=== PATIENT | female | born 1950 | race Caucasian/White ===

== ENCOUNTER 2018-08-17 02:40 | Inpatient (IN) | payer MEDICARE, BC ==
[2018-08-17] MEDS ORDERED: Sodium Chloride 0.9% 1,000 ML IV ONE (03:26)
[2018-08-17] MEDS ORDERED: GI Cocktail Oral Solution 30 ML PO ONE (03:26)
[2018-08-17] MEDS ORDERED: Pantoprazole 40 MG Vial IVPUSH ONE (03:26)
[2018-08-17] MEDS ORDERED: Famotidine 20 MG/2 ML SDV IVPUSH ONE (03:26)
--- NOTE | 2018-08-17 03:33 | EDM.PDOC ---
ED HPI GENERAL MEDICAL PROBLEM - General Chief Complaint: General Stated Complaint: nausea, bilat upper abd pain, HTN, HORTON Time Seen by Provider: 08/17/18 03:08 Source of Information: Reports: Patient History Limitations: Reports: No Limitations - History of Present Illness INITIAL COMMENTS - FREE TEXT/NARRATIVE: Patient comes to ER with complaint of bilateral upper abdominal pain that started on Friday, two days ago. Has been relatively constant over that timeframe. Unable to sleep due to discomfort. Pain does not really change with position/PO intake/burping/bowel movements/movement/breathing. Denies vomiting/ diarrhea. Has nausea. Developed headache today. No vision changes or other HEENT changes. Denies cough/SOB/respiratory changes. No CV complaints such as chest pain/palpitations. History of CAD/CABG Normal bowel movements. Does not feel constipated. No or Neuro changes. Tried Rolaids but no change noted. No history of similar pain in past. Still has gallbladder. Denies history of pancreatitis. Bilateral Upper Abdomen Pain Score (Numeric/FACES): 8 - Related Data Allergies Allergy/AdvReac Type Severity Reaction Status Date / Time Penicillins Allergy Rash Verified 08/17/18 02:46 Home Meds: Home Meds Aspirin [Aspirin EC] 325 mg PO DAILY 05/08/18 [History] Levothyroxine Sodium [Synthroid] 1 tab PO DAILY 05/08/18 [History] Lisinopril 10 mg PO DAILY@18 05/08/18 [History] Metoprolol Succinate [Toprol XL] 25 mg PO DAILY 05/08/18 [History] atorvaSTATin [Lipitor] 40 mg PO BEDTIME 05/08/18 [History] metFORMIN HCl [Metformin HCl] 500 mg PO BID 05/08/18 [History] Acetaminophen [Tylenol Arthritis] 2 tab PO Q6H PRN 08/17/18 [History] Cholecalciferol (Vitamin D3) [Vitamin D3] 1,000 units PO BID 08/17/18 [History] Folic Acid/Multivit-Min/Lutein [Multi-Vitamin Gummies] 1 each PO DAILY 08/17/18 [History] Magnesium Oxide [Magnesium] 400 mg PO BID 08/17/18 [History] Temazepam 1 tab PO BEDTIME PRN 08/17/18 [History] Vitamin C/Biotin [Cnct-Hjkb-Emcnb Gummies] 1 each PO DAILY 08/17/18 [History] Past Medical History Cardiovascular History: Reports: Afib, High Cholesterol, [place] Other Cardiovascular History: Two incidences of short term Afib since CABG Gastrointestinal History: Reports: GERD ASPHALT ENGINEER History: Reports: , Other (See Below) Other ASPHALT ENGINEER History: Hysterectomy Musculoskeletal History: Reports: Back Pain, Chronic, Other (See Below) ( ventral hernia) Endocrine/Metabolic History: Reports: Diabetes, Type II, Hypothyroidism, Obesity /BMI 30+, Other (See Below) Other Endocrine/Metabolic History: Borderline Type II Diabetic Dermatologic History: Reports: Eczema - Past Surgical History Cardiovascular Surgical History: Reports: Coronary Artery Bypass Other Cardiovascular Surgeries/Procedures: CABG x2 in 2017 GI Surgical History: Reports: Hernia, Abdominal Social & Family History - Tobacco Use Smoking Status *Q: Never Smoker - Caffeine Use Caffeine Use: Reports: None - Alcohol Use Alcohol Use History: No Alcohol Use in Last Twelve Months: No - Recreational Drug Use Recreational Drug Use: No Drug Use in Last 12 Months: No ED ROS GENERAL - Review of Systems Review Of Systems: See Below Constitutional: Reports: Decreased Appetite. Denies: Fever, Chills, Weakness, Fatigue, Diaphoresis HEENT: Reports: No Symptoms Respiratory: Reports: No Symptoms Cardiovascular: Reports: No Symptoms GI/Abdominal: Reports: Abdominal Pain, Decreased Appetite, Nausea. Denies: Black Stool, Bloody Stool, Constipation, Diarrhea, Difficulty Swallowing, Distension, Vomiting : Reports: No Symptoms Musculoskeletal: Reports: No Symptoms (no acute changes from baseline) Skin: Reports: No Symptoms Neurological: Reports: Headache. Denies: Confusion, Dizziness, Difficulty Walking, Weakness, Change in Speech, Gait Disturbance Psychiatric: Reports: No Symptoms Hematologic/Lymphatic: Reports: No Symptoms ED EXAM, GENERAL - Physical Exam Exam: See Below Exam Limited By: No Limitations General Appearance: Alert, WD/WN, No Apparent Distress Eye Exam: Bilateral Eye: EOMI, PERRL Ears: Normal External Exam Nose: Normal Inspection Throat/Mouth: Normal Lips, Normal Voice, No Airway Compromise Head: Atraumatic, Normocephalic Neck: Normal Inspection, Supple, Non-Tender, Full Range of Motion. No: Carotid Bruit, Lymphadenopathy (L), Lymphadenopathy (R) Respiratory/Chest: No Respiratory Distress, Lungs Clear, Normal Breath Sounds, No Accessory Muscle Use, Chest Non-Tender Cardiovascular: Normal Peripheral Pulses, Regular Rate, Rhythm, No Edema, No Murmur Peripheral Pulses: 2+: Radial (L), Radial (R) GI/Abdominal: Soft, Tender (most tender in epigastric area, also some tenderness noted bilateral upper abdomen. No radiation of pain. ), Abnormal Bowel Sounds (diminished), Hernia (has ventral hernia). No: Guarding, Rigid, Rebound (Female) Exam: Deferred Rectal (Female) Exam: Deferred Back Exam: No: CVA Tenderness (L), CVA Tenderness (R), Muscle Spasm Extremities: Normal Inspection, Normal Range of Motion, Non-Tender, No Pedal Edema, Normal Capillary Refill Neurological: Alert, Oriented, Normal Cognition, Normal Gait, No Motor/Sensory Deficits Psychiatric: Normal Affect, Normal Mood Skin Exam: Warm, Dry, Intact, Normal Color EKG INTERPRETATION EKG Date: 08/17/18 Time: 02:47 Rhythm: NSR Rate (Beats/Min): 77 [place]: Normal P-Wave: Present QRS: Normal ST-T: Other (flattening of T waves lateral leads) QT: Normal Comparison: No Change (from May 2018) Course - Vital Signs Last Recorded V/S: Last Vital Signs Temp 36.8 C 08/17/18 02:45 Pulse 72 08/17/18 02:45 Resp 20 08/17/18 02:45 BP 164/92 H 08/17/18 02:45 Pulse Ox 94 L 08/17/18 02:45 - Orders/Labs/Meds Orders: Active Orders 24 hr Category Date Time Status Cardiac Monitoring [RC] . DIRECTED Care 08/17/18 03:03 Active EKG Documentation Completion [RC] ASDIRECTED Care 08/17/18 02:53 Active Abdomen 2V AP Flat Upright [CR] Stat Exams 08/17/18 03:02 Ordered Chest 2V [CR] Stat Exams 08/17/18 03:02 Ordered AMYLASE [CHEM] Stat Lab 08/17/18 03:09 Ordered CK W CKMB [CHEM] Stat Lab 08/17/18 03:00 Received CMP [COMPREHENSIVE METABOLIC PN,CMP] [CHEM] Stat Lab 08/17/18 03:00 Received INR,PT,PROTHROMBIN TIME [COAG] Stat Lab 08/17/18 03:00 Received LIPASE [CHEM] Stat Lab 08/17/18 03:09 Ordered MAGNESIUM [CHEM] Stat Lab 08/17/18 03:00 Received PRO B-TYPE NATRIUR PEPT,BNPPRO [CHEM] Stat Lab 08/17/18 03:00 Received PTT,PARTIAL THROMBOPLSTIN TIME [COAG] Stat Lab 08/17/18 03:00 Received TROPONIN I [CHEM] Stat Lab 08/17/18 03:00 Received TSH ULTRASENSITIVE [CHEM] Stat Lab 08/17/18 03:00 Received Sodium Chloride 0.9% [Normal Saline] 1,000 ml Med 08/17/18 03:26 Ordered IV .BOLUS Sodium Chloride 0.9% [Saline Flush] Med 08/17/18 03:03 Active 10 ml FLUSH ASDIRECTED PRN Saline Lock Insert [OM.PC] Routine Oth 08/17/18 03:03 Ordered Medication Orders Sodium Chloride (Normal Saline) 1,000 mls @ 500 mls/hr IV .BOLUS ONE Stop: 08/17/18 05:25 Sodium Chloride (Saline Flush) 10 ml FLUSH ASDIRECTED PRN PRN Reason: Keep Vein Open Labs: Laboratory Tests 08/17/18 08/17/18 08/17/18 Range/Units 03:00 03:00 03:00 WBC 13.3 H (4.0-10.2) K/uL RBC 4.45 (3.77-5.09) M/uL Hgb 14.3 (11.7-15.5) g/dL Hct 41.3 (34.0-46.0) % MCV 92.8 (84.0-98.0) fL MCH 32.1 (28.2-33.3) pg MCHC 34.6 (31.7-36.0) g/dL RDW 12.1 (11.2-14.1) % Plt Count 327 (150-350) K/uL Neut % (Auto) 77.9 (45.0-80.0) % Lymph % (Auto) 13.0 (10.0-50.0) % [place] % (Auto) 7.8 (2.0-14.0) % Eos % (Auto) 1.1 (0.0-5.0) % Baso % (Auto) 0.2 (0.0-2.0) % Neut # (Auto) 10.33 H (1.40-7.00) K/uL Lymph # (Auto) 1.73 (0.50-3.50) K/uL [place] # (Auto) 1.04 H (0.00-1.00) K/uL Eos # (Auto) 0.15 (0.00-0.50) K/uL Baso # (Auto) 0.02 (0.00-0.20) K/uL D-Dimer, Quantitative 374 (0-400) ng/mL Lactic Acid 1.6 (0.4-2.0) mmol/L Meds: Medications Generic Name Dose Route Start Last Admin Trade Name Freq PRN Reason Stop Dose Admin Sodium Chloride 1,000 mls @ 500 mls/hr 08/17/18 03:26 Normal Saline IV 08/17/18 05:25 .BOLUS ONE Sodium Chloride 10 ml 08/17/18 03:03 Saline Flush FLUSH ASDIRECTED PRN Keep Vein Open Discontinued Medications Generic Name Dose Route Start Last Admin Trade Name Freq PRN Reason Stop Dose Admin Al Hydroxide/Mg Hydroxide 30 ml 08/17/18 03:26 Gi Cocktail PO 08/17/18 03:27 ONETIME ONE Famotidine 20 mg 08/17/18 03:26 Pepcid IVPUSH 08/17/18 03:27 ONETIME ONE Pantoprazole Sodium 40 mg 08/17/18 03:26 Protonix Iv IVPUSH 08/17/18 03:27 ONETIME ONE - Radiology Interpretation Free Text/Narrative:: No acute changes observed on chest xray that suggest infiltrate/pneumonia. Abdominal film: no air/fluid levels. Increased stool in ascending colon. Round lucency noted near liver, of unknown significance. - Re-Assessments/Exams Free Text/Narrative Re-Assessment/Exam: 08/17/18 03:46 Cardiac protocol ordered given patient's CAD history and possibility of this being atypical chest pain related to ischemia. EKG unremarkable. No change from EKG from May 2018. Trop/Ddimer unremarkable. Amylase/lipase/LFTs normal. WBC elevated to 13 Blood glucose elevated. Mg low despite patient taking Mg supplement at home. BNP mildly elevated. Pain improved with GI cocktail. Protonix and Pepcid given IV. Patient later admitted that she has been having a lot more problems with heartburn lately. Plan at this time is to admit and perform serial cardiac enzyme measurements to more fully rule out cardiac component to patient's complaint. US of abdomen ordered to more closely look at lucency noted on abdominal film. H.Pylorie screen also requested. Departure - Departure Time of Disposition: 04:01 Disposition: Refer to Observation Condition: Good Clinical Impression: Hypomagnesemia Abdominal pain Qualifiers: Abdominal location: upper abdomen, unspecified Qualified Code(s): R10.10 - Upper abdominal pain, unspecified - Discharge Information *PRESCRIPTION DRUG MONITORING PROGRAM REVIEWED*: Not Applicable *COPY OF PRESCRIPTION DRUG MONITORING REPORT IN PATIENT RAMU: Not Applicable Referrals: Petrona Renee COMBINATION WORKER [Primary Care Provider] - - Problem List & Annotations (1) Abdominal pain SNOMED Code(s): 72219565 Code(s): R10.9 - UNSPECIFIED ABDOMINAL PAIN Status: Acute Priority: High Onset Date: ~08/14/18 Annotation/Comment:: Uncertain etiology. Suspect GERD /PUD contributing to the pain. Improved with GI cocktail. Abd US ordered to more fully assess upper abdomen. Normal LFT/amylase/lipase Qualifiers: Abdominal location: upper abdomen, unspecified Qualified Code(s): R10.10 - Upper abdominal pain, unspecified (2) GERD (gastroesophageal reflux disease) SNOMED Code(s): 970101708 Code(s): K21.9 - GASTRO-ESOPHAGEAL REFLUX DISEASE WITHOUT ESOPHAGITIS Status: Chronic Priority: High Annotation/Comment:: History of GERD/ heartburn symptoms. Pain tonight improved with GI cocktail. Protonix and Pepcid given IV. H.Pylorie screen ordered. Qualifiers: Esophagitis presence: esophagitis presence not specified Qualified Code(s) : K21.9 - Gastro-esophageal reflux disease without esophagitis (3) Hypomagnesemia SNOMED Code(s): 151732818 Code(s): E83.42 - HYPOMAGNESEMIA Status: Chronic Priority: Medium Annotation/Comment:: Will give supplemental Mag. Patient's home dose of Magnesium will need to be increased at time of discharge. (4) Hypertension SNOMED Code(s): 13091961 Code(s): I10 - ESSENTIAL (PRIMARY) HYPERTENSION Status: Chronic Priority : Medium Annotation/Comment:: Monitor for trends while on observation Qualifiers: Hypertension type: essential hypertension Qualified Code(s): I10 - Essential (primary) hypertension (5) Diabetes SNOMED Code(s): 24397780 Code(s): E11.9 - TYPE 2 DIABETES MELLITUS WITHOUT COMPLICATIONS Status: Chronic Priority: Low Annotation/Comment:: A1C ordered. Qualifiers: Diabetes mellitus type: type 2 - Problem List Review Problem List Initiated/Reviewed/Updated: Yes - My Orders Last 24 Hours: My Active Orders 08/17/18 02:53 EKG Documentation Completion [RC] ASDIRECTED 08/17/18 03:00 CK W CKMB [CHEM] Stat CMP [COMPREHENSIVE METABOLIC PN,CMP] [CHEM] Stat INR,PT,PROTHROMBIN TIME [COAG] Stat MAGNESIUM [CHEM] Stat PRO B-TYPE NATRIUR PEPT,BNPPRO [CHEM] Stat PTT,PARTIAL THROMBOPLSTIN TIME [COAG] Stat TROPONIN I [CHEM] Stat TSH ULTRASENSITIVE [CHEM] Stat 08/17/18 03:02 Abdomen 2V AP Flat Upright [CR] Stat Chest 2V [CR] Stat 08/17/18 03:03 Cardiac Monitoring [RC] . DIRECTED Sodium Chloride 0.9% [Saline Flush] 10 ml FLUSH ASDIRECTED PRN Saline Lock Insert [OM.PC] Routine 08/17/18 03:09 AMYLASE [CHEM] Stat LIPASE [CHEM] Stat 08/17/18 03:26 Sodium Chloride 0.9% [Normal Saline] 1,000 ml IV .BOLUS - Assessment/Plan Admission H&P: Please use this note as an admission H&P Last 24 Hours: My Active Orders 08/17/18 02:53 EKG Documentation Completion [RC] ASDIRECTED 08/17/18 03:00 CK W CKMB [CHEM] Stat CMP [COMPREHENSIVE METABOLIC PN,CMP] [CHEM] Stat INR,PT,PROTHROMBIN TIME [COAG] Stat MAGNESIUM [CHEM] Stat PRO B-TYPE NATRIUR PEPT,BNPPRO [CHEM] Stat PTT,PARTIAL THROMBOPLSTIN TIME [COAG] Stat TROPONIN I [CHEM] Stat TSH ULTRASENSITIVE [CHEM] Stat 08/17/18 03:02 Abdomen 2V AP Flat Upright [CR] Stat Chest 2V [CR] Stat 08/17/18 03:03 Cardiac Monitoring [RC] . DIRECTED Sodium Chloride 0.9% [Saline Flush] 10 ml FLUSH ASDIRECTED PRN Saline Lock Insert [OM.PC] Routine 08/17/18 03:09 AMYLASE [CHEM] Stat LIPASE [CHEM] Stat 08/17/18 03:26 Sodium Chloride 0.9% [Normal Saline] 1,000 ml IV .BOLUS Assessment:: as above Plan: as above. Patient stable and suitable for generalized supervision. Anticipate 1- 2 day stay depending upon clinical course.
[2018-08-17 03:34] LABS: CHLORIDE,CL 97 mmol/L (98-107); SODIUM,NA 134 mmol/L (136-145)
[2018-08-17] MEDS: Sodium Chloride 0.9% 10 ML Syringe FLUSH PRN ×5 (03:39→20:00)
[2018-08-17] MEDS ORDERED: Temazepam 15 MG Cap PO PRN (04:16)
[2018-08-17] MEDS ORDERED: Ondansetron 4 MG/2 ML SDV IVPUSH ONE ×2 (04:21→13:33)
[2018-08-17] MEDS ORDERED: Morphine 4 MG/ML Syringe IVPUSH ONE (04:21)
[2018-08-17] MEDS ORDERED: Levothyroxine 75 MCG Tab PO SCH (07:30)
[2018-08-17] MEDS ORDERED: metFORMIN 500 MG Tab PO SCH (07:30)
[2018-08-17] MEDS ORDERED: Magnesium Oxide 400 MG Tab PO SCH (08:00)
[2018-08-17] MEDS: Acetaminophen 325 MG Tab PO PRN (09:19)
[2018-08-17] MEDS: Metoprolol Succinate 25 MG Tab.ER PO SCH (09:20)
[2018-08-17 09:31] LABS: HEMOGLOBIN A1C 7.7 % (4.3-5.7)
--- NOTE | 2018-08-17 10:10 | PCM.SN ---
- Free Text/Narrative Note: 08-17-18 1000 Truong Solorio PA-C Phone call from [facility] Radiologist Dr. Pinzon, with ultrasound report of gallbladder inflammation and gallstones that would be consistent with Cholelithiasis.
[2018-08-17] MEDS ORDERED: fentaNYL 100 MCG/2 ML SDV IVPUSH ONE (13:33)
[2018-08-17] MEDS: Ciprofloxacin in D5W 400 MG in Premix Bag 1 BAG IV SCH ×2 (14:05)
[2018-08-17] MEDS: metroNIDAZOLE/Normal Saline 500 MG in Premix Bag 1 BAG IV SCH (15:07)
[2018-08-17] MEDS: Lactated Ringers 1,000 ML IV SCH (15:08)
--- NOTE | 2018-08-17 15:08 | PCM.PN ---
- General Info Date of Service: 08/17/18 Functional Status: Reports: Other (still with pain) - Review of Systems General: Reports: Other (nausea) HEENT: Reports: Headaches Pulmonary: Reports: No Symptoms Cardiovascular: Reports: No Symptoms Gastrointestinal: Reports: Abdominal Pain, Decreased Appetite, Nausea, Vomiting Genitourinary: Reports: No Symptoms Musculoskeletal: Reports: No Symptoms Skin: Reports: No Symptoms Neurological: Reports: No Symptoms Psychiatric: Reports: No Symptoms - Patient Data Vitals - Most Recent: Last Vital Signs Temp 97.1 F 08/17/18 12:00 Pulse 66 08/17/18 12:00 Resp 16 08/17/18 12:00 BP 187/92 H 08/17/18 12:00 Pulse Ox 96 08/17/18 12:00 Weight - Most Recent: 191 lb 3.205 oz Lab Results Last 24 Hours: Laboratory Results - last 24 hr 08/17/18 08/17/18 08/17/18 Range/Units 03:00 03:00 03:00 WBC 13.3 H (4.0-10.2) K/uL RBC 4.45 (3.77-5.09) M/uL Hgb 14.3 (11.7-15.5) g/dL Hct 41.3 (34.0-46.0) % MCV 92.8 (84.0-98.0) fL MCH 32.1 (28.2-33.3) pg MCHC 34.6 (31.7-36.0) g/dL RDW 12.1 (11.2-14.1) % Plt Count 327 (150-350) K/uL Neut % (Auto) 77.9 (45.0-80.0) % Lymph % (Auto) 13.0 (10.0-50.0) % [place] % (Auto) 7.8 (2.0-14.0) % Eos % (Auto) 1.1 (0.0-5.0) % Baso % (Auto) 0.2 (0.0-2.0) % Neut # (Auto) 10.33 H (1.40-7.00) K/uL Lymph # (Auto) 1.73 (0.50-3.50) K/uL [place] # (Auto) 1.04 H (0.00-1.00) K/uL Eos # (Auto) 0.15 (0.00-0.50) K/uL Baso # (Auto) 0.02 (0.00-0.20) K/uL PT 11.0 (9.5-12.0) SEC INR 1.0 APTT 24.9 (21.0-31.3) SEC D-Dimer, Quantitative (0-400) ng/mL Sodium 134 L (136-145) mmol/L Potassium 3.7 (3.5-5.1) mmol/L Chloride 97 L (98-107) mmol/L Carbon Dioxide 26.4 (21.0-32.0) mmol/L BUN 11 (7-18) mg/dL Creatinine 0.70 (0.51-1.17) mg/dL Est Cr Clr Drug Dosing 61.68 mL/min Estimated GFR (MDRD) > 60 mL/min Glucose 203 H (74-106) mg/dL Hemoglobin A1c (4.3-5.7) % Lactic Acid (0.4-2.0) mmol/L Calcium 9.0 (8.5-10.1) mg/dL Magnesium 1.6 L (1.8-2.4) mg/dL Total Bilirubin 0.7 (0.2-1.0) mg/dL AST 16 (15-37) U/L ALT 27 (12-78) U/L Alkaline Phosphatase 94 (46-116) IU/L Creatine Kinase 45 (26-308) U/L Creatine Kinase Index 2.2 (0.0-2.5) % CK-MB (CK-2) 1.00 (0.00-3.60) ng/mL Troponin I 0.000 (0.000-0.056) ng/mL C-Reactive Protein (<=0.9) mg/dL NT-Pro-B Natriuret Pep 553 H (0-125) pg/mL Total Protein 8.0 (6.4-8.2) g/dL Albumin 3.8 (3.4-5.0) g/dL Amylase 52 (25-115) U/L Lipase 119 (73-393) U/L TSH, Ultra Sensitive 0.802 (0.358-3.740) mIU/mL Specimen Type Urine Color Urine Appearance Urine pH (5.0-9.0) Ur Specific [place] (1.005-1.030) Urine Protein (NEGATIVE) mg/dL Urine Glucose (UA) (NEGATIVE) mg/dL Urine Ketones (NEGATIVE) mg/dL Urine Occult Blood (NEGATIVE) Urine Nitrite (NEGATIVE) Urine Bilirubin (NEGATIVE) Urine Urobilinogen (0.2-1.0) E.U./dL Ur Leukocyte Esterase (NEGATIVE) Urine RBC /HPF Urine WBC /HPF Ur Epithelial Cells /LPF Urine Bacteria (NONE TO FEW) /HPF Urinalysis Comment 08/17/18 08/17/18 08/17/18 Range/Units 03:00 03:00 03:03 WBC (4.0-10.2) K/uL RBC (3.77-5.09) M/uL Hgb (11.7-15.5) g/dL Hct (34.0-46.0) % MCV (84.0-98.0) fL MCH (28.2-33.3) pg MCHC (31.7-36.0) g/dL RDW (11.2-14.1) % Plt Count (150-350) K/uL Neut % (Auto) (45.0-80.0) % Lymph % (Auto) (10.0-50.0) % [place] % (Auto) (2.0-14.0) % Eos % (Auto) (0.0-5.0) % Baso % (Auto) (0.0-2.0) % Neut # (Auto) (1.40-7.00) K/uL Lymph # (Auto) (0.50-3.50) K/uL [place] # (Auto) (0.00-1.00) K/uL Eos # (Auto) (0.00-0.50) K/uL Baso # (Auto) (0.00-0.20) K/uL PT (9.5-12.0) SEC INR APTT (21.0-31.3) SEC D-Dimer, Quantitative 374 (0-400) ng/mL Sodium (136-145) mmol/L Potassium (3.5-5.1) mmol/L Chloride (98-107) mmol/L Carbon Dioxide (21.0-32.0) mmol/L BUN (7-18) mg/dL Creatinine (0.51-1.17) mg/dL Est Cr Clr Drug Dosing mL/min Estimated GFR (MDRD) mL/min Glucose (74-106) mg/dL Hemoglobin A1c 7.7 H (4.3-5.7) % Lactic Acid 1.6 (0.4-2.0) mmol/L Calcium (8.5-10.1) mg/dL Magnesium (1.8-2.4) mg/dL Total Bilirubin (0.2-1.0) mg/dL AST (15-37) U/L ALT (12-78) U/L Alkaline Phosphatase (46-116) IU/L Creatine Kinase (26-308) U/L Creatine Kinase Index (0.0-2.5) % CK-MB (CK-2) (0.00-3.60) ng/mL Troponin I (0.000-0.056) ng/mL C-Reactive Protein (<=0.9) mg/dL NT-Pro-B Natriuret Pep (0-125) pg/mL Total Protein (6.4-8.2) g/dL Albumin (3.4-5.0) g/dL Amylase (25-115) U/L Lipase (73-393) U/L TSH, Ultra Sensitive (0.358-3.740) mIU/mL Specimen Type Urine Color Urine Appearance Urine pH (5.0-9.0) Ur Specific [place] (1.005-1.030) Urine Protein (NEGATIVE) mg/dL Urine Glucose (UA) (NEGATIVE) mg/dL Urine Ketones (NEGATIVE) mg/dL Urine Occult Blood (NEGATIVE) Urine Nitrite (NEGATIVE) Urine Bilirubin (NEGATIVE) Urine Urobilinogen (0.2-1.0) E.U./dL Ur Leukocyte Esterase (NEGATIVE) Urine RBC /HPF Urine WBC /HPF Ur Epithelial Cells /LPF Urine Bacteria (NONE TO FEW) /HPF Urinalysis Comment 08/17/18 08/17/18 08/17/18 Range/Units 06:31 09:00 09:10 WBC (4.0-10.2) K/uL RBC (3.77-5.09) M/uL Hgb (11.7-15.5) g/dL Hct (34.0-46.0) % MCV (84.0-98.0) fL MCH (28.2-33.3) pg MCHC (31.7-36.0) g/dL RDW (11.2-14.1) % Plt Count (150-350) K/uL Neut % (Auto) (45.0-80.0) % Lymph % (Auto) (10.0-50.0) % [place] % (Auto) (2.0-14.0) % Eos % (Auto) (0.0-5.0) % Baso % (Auto) (0.0-2.0) % Neut # (Auto) (1.40-7.00) K/uL Lymph # (Auto) (0.50-3.50) K/uL [place] # (Auto) (0.00-1.00) K/uL Eos # (Auto) (0.00-0.50) K/uL Baso # (Auto) (0.00-0.20) K/uL PT (9.5-12.0) SEC INR APTT (21.0-31.3) SEC D-Dimer, Quantitative (0-400) ng/mL Sodium (136-145) mmol/L Potassium (3.5-5.1) mmol/L Chloride (98-107) mmol/L Carbon Dioxide (21.0-32.0) mmol/L BUN (7-18) mg/dL Creatinine (0.51-1.17) mg/dL Est Cr Clr Drug Dosing mL/min Estimated GFR (MDRD) mL/min Glucose (74-106) mg/dL Hemoglobin A1c (4.3-5.7) % Lactic Acid (0.4-2.0) mmol/L Calcium (8.5-10.1) mg/dL Magnesium (1.8-2.4) mg/dL Total Bilirubin (0.2-1.0) mg/dL AST (15-37) U/L ALT (12-78) U/L Alkaline Phosphatase (46-116) IU/L Creatine Kinase (26-308) U/L Creatine Kinase Index (0.0-2.5) % CK-MB (CK-2) (0.00-3.60) ng/mL Troponin I 0.000 (0.000-0.056) ng/mL C-Reactive Protein 2.8 H (<=0.9) mg/dL NT-Pro-B Natriuret Pep (0-125) pg/mL Total Protein (6.4-8.2) g/dL Albumin (3.4-5.0) g/dL Amylase (25-115) U/L Lipase (73-393) U/L TSH, Ultra Sensitive (0.358-3.740) mIU/mL Specimen Type Urinvoid Urine Color Yellow Urine Appearance Clear Urine pH 7.0 (5.0-9.0) Ur Specific [place] 1.015 (1.005-1.030) Urine Protein Negative (NEGATIVE) mg/dL Urine Glucose (UA) Negative (NEGATIVE) mg/dL Urine Ketones Trace H (NEGATIVE) mg/dL Urine Occult Blood Negative (NEGATIVE) Urine Nitrite Negative (NEGATIVE) Urine Bilirubin Negative (NEGATIVE) Urine Urobilinogen 0.2 (0.2-1.0) E.U./dL Ur Leukocyte Esterase Small H (NEGATIVE) Urine RBC Not seen /HPF Urine WBC 5-10 H /HPF Ur Epithelial Cells Many H /LPF Urine Bacteria Moderate H (NONE TO FEW) /HPF Urinalysis Comment Med Orders - Current: Current Medications Acetaminophen (Tylenol) 650 mg PO Q4H PRN PRN Reason: analgesia/fever Last Admin: 08/17/18 09:19 Dose: 650 mg Fentanyl (Sublimaze) 100 mcg IVPUSH Q3H PRN PRN Reason: Pain Ciprofloxacin/Dextrose 400 mg/ (Premix) 200 mls @ 200 mls/hr IV Q12H [facility] Last Admin: 08/17/18 14:05 Dose: 200 mls/hr Lactated Ringer's (Ringers, Lactated) 1,000 mls @ 100 mls/hr IV ASDIRECTED [facility] Metronidazole 500 mg/ Premix 100 mls @ 100 mls/hr IV Q8H [facility] Lisinopril (Prinivil) 10 mg PO DAILY@18 [facility] Metoprolol Succinate (Toprol Xl) 25 mg PO DAILY [facility] Last Admin: 08/17/18 09:20 Dose: 25 mg Ondansetron HCl (Zofran) 4 mg IVPUSH Q4H PRN PRN Reason: Nausea/Vomiting Pantoprazole Sodium (Protonix Iv) 40 mg IVPUSH BEDTIME [facility] Sodium Chloride (Saline Flush) 10 ml FLUSH ASDIRECTED PRN PRN Reason: Keep Vein Open Last Admin: 08/17/18 14:05 Dose: 10 ml Temazepam (Restoril) 15 mg PO BEDTIME PRN PRN Reason: Insomnia Discontinued Medications Al Hydroxide/Mg Hydroxide (Gi Cocktail) 30 ml PO ONETIME ONE Stop: 08/17/18 03:27 Last Admin: 08/17/18 03:32 Dose: 30 ml Atorvastatin Calcium (Lipitor) 40 mg PO BEDTIME [facility] Famotidine (Pepcid) 20 mg IVPUSH ONETIME ONE Stop: 08/17/18 03:27 Last Admin: 08/17/18 03:32 Dose: 20 mg Fentanyl (Sublimaze) 100 mcg IVPUSH ONETIME ONE Stop: 08/17/18 13:34 Last Admin: 08/17/18 14:06 Dose: 100 mcg Sodium Chloride (Normal Saline) 1,000 mls @ 500 mls/hr IV .BOLUS ONE Stop: 08/17/18 05:25 Last Admin: 08/17/18 03:37 Dose: 500 mls/hr Magnesium Sulfate/Dextrose (Magnesium 1 Gm In D5w 100 Ml) 100 mls @ 100 mls/hr IV ONETIME ONE Stop: 08/17/18 05:29 Last Admin: 08/17/18 04:53 Dose: 100 mls/hr Levothyroxine Sodium (Levothyroxine) 75 mcg PO ACBREAKFAST [facility] Last Admin: 08/17/18 09:20 Dose: 75 mcg Magnesium Oxide (Magnesium Oxide) 400 mg PO BID [facility] Last Admin: 08/17/18 09:19 Dose: 400 mg Metformin HCl (Glucophage) 500 mg PO BIDMEALS [facility] Last Admin: 08/17/18 09:20 Dose: 500 mg Morphine Sulfate (Morphine) 4 mg IVPUSH ONETIME ONE Stop: 08/17/18 04:22 Last Admin: 08/17/18 04:35 Dose: 4 mg Ondansetron HCl (Zofran) 4 mg IVPUSH ONETIME ONE Stop: 08/17/18 04:22 Last Admin: 08/17/18 04:35 Dose: 4 mg Ondansetron HCl (Zofran) 8 mg IVPUSH ONETIME ONE Stop: 08/17/18 13:34 Last Admin: 08/17/18 14:06 Dose: 8 mg Pantoprazole Sodium (Protonix Iv) 40 mg IVPUSH ONETIME ONE Stop: 08/17/18 03:27 Last Admin: 08/17/18 03:32 Dose: 40 mg - Exam General: Alert, Cooperative HEENT: EOMI Neck: Trachea Midline, No JVD Lungs: Clear to Auscultation, Normal Respiratory Effort Cardiovascular: Regular Rate, Regular Rhythm GI/Abdominal Exam: Soft, No Distention, Tender (epigastrium and RUQ) (Female) Exam: Deferred Back Exam: Normal Inspection Extremities: Normal Inspection, Non-Tender Skin: Warm, Dry, Intact Neurological: No New Focal Deficit Psy/Mental Status: Alert, Normal Affect, Normal Mood - Problem List & Annotations (1) Acute cholecystitis due to biliary calculus SNOMED Code(s): 32704596576402 Code(s): K80.00 - CALCULUS OF GALLBLADDER W ACUTE CHOLECYST W/O OBSTRUCTION Status: Acute Priority: High Current Visit: Yes (2) Diabetes SNOMED Code(s): 51479393 Code(s): E11.9 - TYPE 2 DIABETES MELLITUS WITHOUT COMPLICATIONS Status: Chronic Priority: Low Current Visit: No Qualifiers: Diabetes mellitus type: type 2 Diabetes mellitus complication status: with hyperglycemia Annotation/Comment:: (3) GERD (gastroesophageal reflux disease) SNOMED Code(s): 426095192 Code(s): K21.9 - GASTRO-ESOPHAGEAL REFLUX DISEASE WITHOUT ESOPHAGITIS Status: Chronic Priority: High Current Visit: No Qualifiers: Esophagitis presence: esophagitis presence not specified Qualified Code(s) : K21.9 - Gastro-esophageal reflux disease without esophagitis Annotation/Comment:: History of GERD/heartburn symptoms. Pain tonight improved with GI cocktail. Protonix and Pepcid given IV. H.Pylorie screen ordered. (4) Hypertension SNOMED Code(s): 57546311 Code(s): I10 - ESSENTIAL (PRIMARY) HYPERTENSION Status: Chronic Priority : Medium Current Visit: No Qualifiers: Hypertension type: essential hypertension Qualified Code(s): I10 - Essential (primary) hypertension (5) Hypomagnesemia SNOMED Code(s): 762451769 Code(s): E83.42 - HYPOMAGNESEMIA Status: Chronic Priority: Medium Current Visit: No Annotation/Comment:: Will give supplemental Mag. Patient's home dose of Magnesium will need to be increased at time of discharge. - Problem List Review Problem List Initiated/Reviewed/Updated: Yes - My Orders Last 24 Hours: My Active Orders 08/17/18 13:27 Patient Status [ADT] Routine 08/17/18 13:39 Notify Provider Consults [RC] ASDIRECTED Consult to Physician [CONS] Routine 08/17/18 13:45 Lactated Ringers [Ringers, Lactated] 1,000 ml IV ASDIRECTED 08/17/18 14:00 Ciprofloxacin in D5W [Cipro in D5W 400 MG/200 ML] 400 mg Premix Bag 1 bag IV Q12H 08/17/18 15:00 metroNIDAZOLE/Normal Saline [Flagyl 500 MG in NS 100 ML] 500 mg Premix Bag 1 bag IV Q8H 08/17/18 16:30 fentaNYL [Sublimaze] 100 mcg IVPUSH Q3H PRN 08/17/18 17:30 Ondansetron [Zofran] 4 mg IVPUSH Q4H PRN 08/17/18 20:00 Pantoprazole [ProTONIX IV] 40 mg IVPUSH BEDTIME 08/17/18 Dinner Clear Liquid Diet [DIET] 08/18/18 05:11 AMYLASE [CHEM] Routine CBC WITH AUTO DIFF [HEME] DAILY CMP [COMPREHENSIVE METABOLIC PN,CMP] [CHEM] DAILY CRP [C-REACTIVE PROTEIN] [CHEM] DAILY 08/19/18 05:11 CBC WITH AUTO DIFF [HEME] DAILY CMP [COMPREHENSIVE METABOLIC PN,CMP] [CHEM] DAILY CRP [C-REACTIVE PROTEIN] [CHEM] DAILY 08/20/18 05:11 CBC WITH AUTO DIFF [HEME] DAILY CMP [COMPREHENSIVE METABOLIC PN,CMP] [CHEM] DAILY CRP [C-REACTIVE PROTEIN] [CHEM] DAILY - Plan Plan:: 08/17/18 Aleksandr Ya MD Change to inpatient. Ultrasound confirms acute cholecystitis with cholelithiasis. Start IV antibiotics, restart IV fluids, and consult surgeon.
[2018-08-17] MEDS: Lisinopril 5 MG Tab PO SCH (17:11)
[2018-08-17] MEDS ORDERED: Diltiazem 25 MG/5 ML SDV IVPUSH ONE (17:18)
[2018-08-17] MEDS ORDERED: Promethazine 25 MG/ML SDV IM ONE (17:19)
[2018-08-17] MEDS ORDERED: NIFEdipine 10 MG Cap PO STA (19:45)
[2018-08-17] MEDS: Ondansetron 4 MG/2 ML SDV IVPUSH PRN (19:52)
[2018-08-17] MEDS: fentaNYL 100 MCG/2 ML SDV IVPUSH PRN (19:59)
[2018-08-17] MEDS: Pantoprazole 40 MG Vial IVPUSH SCH (20:00)
[2018-08-17] MEDS ORDERED: atorvaSTATin 40 MG Tab PO SCH (20:00)
[2018-08-18] MEDS: metroNIDAZOLE/Normal Saline 500 MG in Premix Bag 1 BAG IV SCH ×3 (00:01→15:18)
[2018-08-18] MEDS: Sodium Chloride 0.9% 10 ML Syringe FLUSH PRN ×7 (00:01→20:08)
[2018-08-18] MEDS: Acetaminophen 325 MG Tab PO PRN ×3 (00:11→14:23)
[2018-08-18] MEDS: fentaNYL 100 MCG/2 ML SDV IVPUSH PRN (00:11)
[2018-08-18] MEDS: Ondansetron 4 MG/2 ML SDV IVPUSH PRN (00:12)
[2018-08-18] MEDS: Ciprofloxacin in D5W 400 MG in Premix Bag 1 BAG IV SCH ×4 (01:11→14:21)
[2018-08-18] MEDS: Lactated Ringers 1,000 ML IV SCH ×2 (04:25→18:36)
[2018-08-18 07:43] LABS: CHLORIDE,CL 95 mmol/L (98-107); SODIUM,NA 132 mmol/L (136-145)
[2018-08-18] MEDS: Metoprolol Succinate 25 MG Tab.ER PO SCH (08:53)
[2018-08-18] MEDS ORDERED: Lisinopril 10 MG Tab PO ONE (12:00)
[2018-08-18] MEDS: Lisinopril 5 MG Tab PO SCH (17:33)
[2018-08-18] MEDS: Pantoprazole 40 MG Vial IVPUSH SCH (19:58)
--- NOTE | 2018-08-18 22:45 | PCM.PN ---
- General Info Date of Service: 08/18/18 Functional Status: Reports: Pain Controlled - Review of Systems General: Reports: No Symptoms HEENT: Reports: Headaches Pulmonary: Reports: No Symptoms Cardiovascular: Reports: No Symptoms Gastrointestinal: Reports: Decreased Appetite Genitourinary: Reports: No Symptoms Musculoskeletal: Reports: No Symptoms Skin: Reports: No Symptoms Neurological: Reports: No Symptoms Psychiatric: Reports: No Symptoms - Patient Data Vitals - Most Recent: Last Vital Signs Temp 98.6 F 08/18/18 20:00 Pulse 73 08/18/18 20:00 Resp 14 08/18/18 20:00 BP 123/58 L 08/18/18 20:00 Pulse Ox 91 L 08/18/18 20:00 Weight - Most Recent: 191 lb 3.205 oz I&O - Last 24 Hours: Intake & Output 08/18/18 08/18/18 08/18/18 06:59 14:59 22:59 Intake Total 0898 416 6175 Output Total 500 850 850 Balance 800 -750 920 Lab Results Last 24 Hours: Laboratory Results - last 24 hr 08/18/18 08/18/18 08/18/18 Range/Units 07:15 07:15 07:29 WBC 19.1 H (4.0-10.2) K/uL RBC 4.29 (3.77-5.09) M/uL Hgb 13.9 (11.7-15.5) g/dL Hct 40.8 (34.0-46.0) % MCV 95.1 (84.0-98.0) fL MCH 32.4 (28.2-33.3) pg MCHC 34.1 (31.7-36.0) g/dL RDW 12.3 (11.2-14.1) % Plt Count 272 (150-350) K/uL Neut % (Auto) 81.9 H (45.0-80.0) % Lymph % (Auto) 6.1 L (10.0-50.0) % [place] % (Auto) 11.8 (2.0-14.0) % Eos % (Auto) 0.1 (0.0-5.0) % Baso % (Auto) 0.1 (0.0-2.0) % Neut # (Auto) 15.68 H (1.40-7.00) K/uL Lymph # (Auto) 1.16 (0.50-3.50) K/uL [place] # (Auto) 2.25 H (0.00-1.00) K/uL Eos # (Auto) 0.01 (0.00-0.50) K/uL Baso # (Auto) 0.02 (0.00-0.20) K/uL Sodium 132 L (136-145) mmol/L Potassium 4.0 (3.5-5.1) mmol/L Chloride 95 L (98-107) mmol/L Carbon Dioxide 29.3 (21.0-32.0) mmol/L BUN 8 (7-18) mg/dL Creatinine 0.72 (0.51-1.17) mg/dL Est Cr Clr Drug Dosing 59.45 mL/min Estimated GFR (MDRD) > 60 mL/min Glucose 171 H (74-106) mg/dL POC Glucose 185 H (65-110) mg/dl Calcium 8.6 (8.5-10.1) mg/dL Total Bilirubin 1.1 H (0.2-1.0) mg/dL AST 19 (15-37) U/L ALT 22 (12-78) U/L Alkaline Phosphatase 79 (46-116) IU/L C-Reactive Protein 20.2 H (<=0.9) mg/dL Total Protein 7.2 (6.4-8.2) g/dL Albumin 3.0 L (3.4-5.0) g/dL Amylase 38 (25-115) U/L 08/18/18 08/18/18 Range/Units 11:16 17:27 WBC (4.0-10.2) K/uL RBC (3.77-5.09) M/uL Hgb (11.7-15.5) g/dL Hct (34.0-46.0) % MCV (84.0-98.0) fL MCH (28.2-33.3) pg MCHC (31.7-36.0) g/dL RDW (11.2-14.1) % Plt Count (150-350) K/uL Neut % (Auto) (45.0-80.0) % Lymph % (Auto) (10.0-50.0) % [place] % (Auto) (2.0-14.0) % Eos % (Auto) (0.0-5.0) % Baso % (Auto) (0.0-2.0) % Neut # (Auto) (1.40-7.00) K/uL Lymph # (Auto) (0.50-3.50) K/uL [place] # (Auto) (0.00-1.00) K/uL Eos # (Auto) (0.00-0.50) K/uL Baso # (Auto) (0.00-0.20) K/uL Sodium (136-145) mmol/L Potassium (3.5-5.1) mmol/L Chloride (98-107) mmol/L Carbon Dioxide (21.0-32.0) mmol/L BUN (7-18) mg/dL Creatinine (0.51-1.17) mg/dL Est Cr Clr Drug Dosing mL/min Estimated GFR (MDRD) mL/min Glucose (74-106) mg/dL POC Glucose 189 H 168 H (65-110) mg/dl Calcium (8.5-10.1) mg/dL Total Bilirubin (0.2-1.0) mg/dL AST (15-37) U/L ALT (12-78) U/L Alkaline Phosphatase (46-116) IU/L C-Reactive Protein (<=0.9) mg/dL Total Protein (6.4-8.2) g/dL Albumin (3.4-5.0) g/dL Amylase (25-115) U/L Med Orders - Current: Current Medications Acetaminophen (Tylenol) 650 mg PO Q4H PRN PRN Reason: analgesia/fever Last Admin: 08/18/18 14:23 Dose: 650 mg Fentanyl (Sublimaze) 100 mcg IVPUSH Q3H PRN PRN Reason: Pain Last Admin: 08/18/18 00:11 Dose: 100 mcg Ciprofloxacin/Dextrose 400 mg/ (Premix) 200 mls @ 200 mls/hr IV Q12H [facility] Last Admin: 08/18/18 14:21 Dose: 200 mls/hr Lactated Ringer's (Ringers, Lactated) 1,000 mls @ 50 mls/hr IV ASDIRECTED [facility] Last Admin: 08/18/18 18:36 Dose: 100 mls/hr Metronidazole 500 mg/ Premix 100 mls @ 100 mls/hr IV Q8H [facility] Last Admin: 08/18/18 15:18 Dose: 100 mls/hr Lisinopril (Prinivil) 10 mg PO BID [facility] Metoprolol Succinate (Toprol Xl) 25 mg PO DAILY [facility] Last Admin: 08/18/18 08:53 Dose: 25 mg Ondansetron HCl (Zofran) 4 mg IVPUSH Q4H PRN PRN Reason: Nausea/Vomiting Last Admin: 08/18/18 00:12 Dose: 4 mg Pantoprazole Sodium (Protonix Iv) 40 mg IVPUSH BEDTIME [facility] Last Admin: 08/18/18 19:58 Dose: 40 mg Sodium Chloride (Saline Flush) 10 ml FLUSH ASDIRECTED PRN PRN Reason: Keep Vein Open Last Admin: 08/18/18 20:08 Dose: 10 ml Temazepam (Restoril) 15 mg PO BEDTIME PRN PRN Reason: Insomnia Last Admin: 08/18/18 00:11 Dose: 15 mg Discontinued Medications Al Hydroxide/Mg Hydroxide (Gi Cocktail) 30 ml PO ONETIME ONE Stop: 08/17/18 03:27 Last Admin: 08/17/18 03:32 Dose: 30 ml Atorvastatin Calcium (Lipitor) 40 mg PO BEDTIME [facility] Diltiazem HCl (Diltiazem) 20 mg IVPUSH ONETIME ONE Stop: 08/17/18 17:19 Last Admin: 08/17/18 18:04 Dose: 20 mg Famotidine (Pepcid) 20 mg IVPUSH ONETIME ONE Stop: 08/17/18 03:27 Last Admin: 08/17/18 03:32 Dose: 20 mg Fentanyl (Sublimaze) 100 mcg IVPUSH ONETIME ONE Stop: 08/17/18 13:34 Last Admin: 08/17/18 14:06 Dose: 100 mcg Sodium Chloride (Normal Saline) 1,000 mls @ 500 mls/hr IV .BOLUS ONE Stop: 08/17/18 05:25 Last Admin: 08/17/18 03:37 Dose: 500 mls/hr Magnesium Sulfate/Dextrose (Magnesium 1 Gm In D5w 100 Ml) 100 mls @ 100 mls/hr IV ONETIME ONE Stop: 08/17/18 05:29 Last Admin: 08/17/18 04:53 Dose: 100 mls/hr Levothyroxine Sodium (Levothyroxine) 75 mcg PO ACBREAKFAST [facility] Last Admin: 08/17/18 09:20 Dose: 75 mcg Lisinopril (Prinivil) 10 mg PO DAILY@18 [facility] Last Admin: 08/18/18 17:33 Dose: 10 mg Lisinopril (Prinivil) 20 mg PO ONETIME ONE Stop: 08/18/18 12:01 Last Admin: 08/18/18 12:30 Dose: 20 mg Magnesium Oxide (Magnesium Oxide) 400 mg PO BID [facility] Last Admin: 08/17/18 09:19 Dose: 400 mg Metformin HCl (Glucophage) 500 mg PO BIDMEALS [facility] Last Admin: 08/17/18 09:20 Dose: 500 mg Morphine Sulfate (Morphine) 4 mg IVPUSH ONETIME ONE Stop: 08/17/18 04:22 Last Admin: 08/17/18 04:35 Dose: 4 mg Nifedipine (Procardia) 10 mg PO ONETIME [facility] Stop: 08/17/18 19:46 Last Admin: 08/17/18 19:55 Dose: 10 mg Ondansetron HCl (Zofran) 4 mg IVPUSH ONETIME ONE Stop: 08/17/18 04:22 Last Admin: 08/17/18 04:35 Dose: 4 mg Ondansetron HCl (Zofran) 8 mg IVPUSH ONETIME ONE Stop: 08/17/18 13:34 Last Admin: 08/17/18 14:06 Dose: 8 mg Pantoprazole Sodium (Protonix Iv) 40 mg IVPUSH ONETIME ONE Stop: 08/17/18 03:27 Last Admin: 08/17/18 03:32 Dose: 40 mg Promethazine HCl (Phenergan) 25 mg IM ONETIME ONE Stop: 08/17/18 17:20 Last Admin: 08/17/18 18:11 Dose: 25 mg - Exam General: Alert, Cooperative, No Acute Distress HEENT: Mucous Membr. Moist/[place] Neck: Trachea Midline, No JVD Lungs: Clear to Auscultation, Normal Respiratory Effort Cardiovascular: Regular Rate, Regular Rhythm GI/Abdominal Exam: Soft, Non-Tender, No Distention (Female) Exam: Deferred Back Exam: Normal Inspection Extremities: Normal Inspection, Non-Tender, No Pedal Edema Skin: Warm, Dry, Intact Neurological: No New Focal Deficit Psy/Mental Status: Alert, Normal Affect, Normal Mood - Problem List & Annotations (1) Acute cholecystitis due to biliary calculus SNOMED Code(s): 73013835235068 Code(s): K80.00 - CALCULUS OF GALLBLADDER W ACUTE CHOLECYST W/O OBSTRUCTION Status: Acute Priority: High Current Visit: Yes (2) Diabetes SNOMED Code(s): 14855842 Code(s): E11.9 - TYPE 2 DIABETES MELLITUS WITHOUT COMPLICATIONS Status: Chronic Priority: Low Current Visit: No Qualifiers: Diabetes mellitus type: type 2 Diabetes mellitus complication status: with hyperglycemia Annotation/Comment:: (3) GERD (gastroesophageal reflux disease) SNOMED Code(s): 624558066 Code(s): K21.9 - GASTRO-ESOPHAGEAL REFLUX DISEASE WITHOUT ESOPHAGITIS Status: Chronic Priority: High Current Visit: No Qualifiers: Esophagitis presence: esophagitis presence not specified Qualified Code(s) : K21.9 - Gastro-esophageal reflux disease without esophagitis Annotation/Comment:: History of GERD/heartburn symptoms. Pain tonight improved with GI cocktail. Protonix and Pepcid given IV. H.Pylorie screen ordered. (4) Hypertension SNOMED Code(s): 56596921 Code(s): I10 - ESSENTIAL (PRIMARY) HYPERTENSION Status: Chronic Priority : Medium Current Visit: No Qualifiers: Hypertension type: essential hypertension Qualified Code(s): I10 - Essential (primary) hypertension (5) Hypomagnesemia SNOMED Code(s): 799487793 Code(s): E83.42 - HYPOMAGNESEMIA Status: Chronic Priority: Medium Current Visit: No Annotation/Comment:: Will give supplemental Mag. Patient's home dose of Magnesium will need to be increased at time of discharge. (6) Hx of CABG SNOMED Code(s): 343927762, 519224362 Code(s): Z95.1 - PRESENCE OF AORTOCORONARY BYPASS GRAFT Status: Acute Priority: Medium Current Visit: Yes (7) Atherosclerotic coronary vascular disease SNOMED Code(s): 701098873 Code(s): I25.10 - ATHSCL HEART DISEASE OF [place] CORONARY ARTERY W/O ANG PCTRS Status: Acute Current Visit: Yes Qualifiers: Coronary Disease-Associated Artery/Lesion type: bypass graft [place] vs. transplanted heart: [place] heart Associated angina: without angina Qualified Code(s): I25.810 - Atherosclerosis of coronary artery bypass graft(s) without angina pectoris - Problem List Review Problem List Initiated/Reviewed/Updated: Yes - My Orders Last 24 Hours: My Active Orders 08/18/18 22:40 Discontinue Telemetry Monitoring [Cardiac Monitoring Discontinue] [RC] Click to Edit 08/19/18 05:11 CBC WITH AUTO DIFF [HEME] DAILY CMP [COMPREHENSIVE METABOLIC PN,CMP] [CHEM] DAILY CRP [C-REACTIVE PROTEIN] [CHEM] DAILY MAGNESIUM [CHEM] Routine 08/19/18 08:00 Lisinopril [Prinivil] 10 mg PO BID 08/20/18 05:11 CBC WITH AUTO DIFF [HEME] DAILY CMP [COMPREHENSIVE METABOLIC PN,CMP] [CHEM] DAILY CRP [C-REACTIVE PROTEIN] [CHEM] DAILY - Plan Plan:: 08/17/18 Aleksandr Ya MD Change to inpatient. Ultrasound confirms acute cholecystitis with cholelithiasis. Start IV antibiotics, restart IV fluids, and consult surgeon. 08/18/18 Aleksandr Ya MD She does feel better today. Continue IV fluids, IV antibiotics, and awaiting surgeon consultation.
[2018-08-19] MEDS: metroNIDAZOLE/Normal Saline 500 MG in Premix Bag 1 BAG IV SCH ×4 (00:13→22:05)
[2018-08-19] MEDS: Sodium Chloride 0.9% 10 ML Syringe FLUSH PRN ×6 (00:13→22:12)
[2018-08-19] MEDS: Ciprofloxacin in D5W 400 MG in Premix Bag 1 BAG IV SCH ×4 (01:23→14:43)
[2018-08-19] MEDS: Metoprolol Succinate 25 MG Tab.ER PO SCH (07:35)
[2018-08-19] MEDS: Lisinopril 5 MG Tab PO SCH ×2 (07:35→18:08)
[2018-08-19] MEDS: Acetaminophen 325 MG Tab PO PRN (07:43)
[2018-08-19 07:50] LABS: CHLORIDE,CL 99 mmol/L (98-107); SODIUM,NA 136 mmol/L (136-145)
[2018-08-19] MEDS: Lactated Ringers 1,000 ML IV SCH (16:52)
[2018-08-19] MEDS: Pantoprazole 40 MG Vial IVPUSH SCH (22:05)
--- NOTE | 2018-08-19 22:25 | PCM.PN ---
- General Info Date of Service: 08/19/18 Functional Status: Reports: Pain Controlled - Review of Systems General: Reports: No Symptoms HEENT: Reports: No Symptoms Pulmonary: Reports: No Symptoms Cardiovascular: Reports: No Symptoms Gastrointestinal: Reports: No Symptoms Genitourinary: Reports: No Symptoms Musculoskeletal: Reports: No Symptoms Skin: Reports: No Symptoms Neurological: Reports: No Symptoms Psychiatric: Reports: No Symptoms - Patient Data Vitals - Most Recent: Last Vital Signs Temp 98.2 F 08/19/18 20:00 Pulse 73 08/19/18 20:00 Resp 16 08/19/18 20:00 BP 112/66 08/19/18 20:00 Pulse Ox 93 L 08/19/18 20:00 Weight - Most Recent: 191 lb 3.205 oz I&O - Last 24 Hours: Intake & Output 08/19/18 08/19/18 08/19/18 06:59 14:59 22:59 Intake Total 298 444 3113 Output Total 700 300 Balance 781 219 4662 Lab Results Last 24 Hours: Laboratory Results - last 24 hr 08/19/18 08/19/18 08/19/18 Range/Units 07:00 07:00 07:27 WBC 14.4 H (4.0-10.2) K/uL RBC 3.78 (3.77-5.09) M/uL Hgb 12.1 D (11.7-15.5) g/dL Hct 36.4 (34.0-46.0) % MCV 96.3 (84.0-98.0) fL MCH 32.0 (28.2-33.3) pg MCHC 33.2 (31.7-36.0) g/dL RDW 12.4 (11.2-14.1) % Plt Count 249 (150-350) K/uL Neut % (Auto) 74.2 (45.0-80.0) % Lymph % (Auto) 12.2 (10.0-50.0) % [facility] % (Auto) 12.0 (2.0-14.0) % Eos % (Auto) 1.5 (0.0-5.0) % Baso % (Auto) 0.1 (0.0-2.0) % Neut # (Auto) 10.72 H (1.40-7.00) K/uL Lymph # (Auto) 1.76 (0.50-3.50) K/uL [facility] # (Auto) 1.73 H (0.00-1.00) K/uL Eos # (Auto) 0.21 (0.00-0.50) K/uL Baso # (Auto) 0.02 (0.00-0.20) K/uL Sodium 136 (136-145) mmol/L Potassium 3.7 (3.5-5.1) mmol/L Chloride 99 (98-107) mmol/L Carbon Dioxide 29.8 (21.0-32.0) mmol/L BUN 9 (7-18) mg/dL Creatinine 0.79 (0.51-1.17) mg/dL Est Cr Clr Drug Dosing 54.18 mL/min Estimated GFR (MDRD) > 60 mL/min Glucose 120 H (74-106) mg/dL POC Glucose 135 H (65-110) mg/dl Calcium 8.6 (8.5-10.1) mg/dL Magnesium 1.7 L (1.8-2.4) mg/dL Total Bilirubin 0.7 (0.2-1.0) mg/dL AST 18 (15-37) U/L ALT 19 (12-78) U/L Alkaline Phosphatase 74 (46-116) IU/L C-Reactive Protein 29.6 H (<=0.9) mg/dL Total Protein 6.4 (6.4-8.2) g/dL Albumin 2.5 L (3.4-5.0) g/dL 08/19/18 08/19/18 Range/Units 11:07 17:18 WBC (4.0-10.2) K/uL RBC (3.77-5.09) M/uL Hgb (11.7-15.5) g/dL Hct (34.0-46.0) % MCV (84.0-98.0) fL MCH (28.2-33.3) pg MCHC (31.7-36.0) g/dL RDW (11.2-14.1) % Plt Count (150-350) K/uL Neut % (Auto) (45.0-80.0) % Lymph % (Auto) (10.0-50.0) % [facility] % (Auto) (2.0-14.0) % Eos % (Auto) (0.0-5.0) % Baso % (Auto) (0.0-2.0) % Neut # (Auto) (1.40-7.00) K/uL Lymph # (Auto) (0.50-3.50) K/uL [place] # (Auto) (0.00-1.00) K/uL Eos # (Auto) (0.00-0.50) K/uL Baso # (Auto) (0.00-0.20) K/uL Sodium (136-145) mmol/L Potassium (3.5-5.1) mmol/L Chloride (98-107) mmol/L Carbon Dioxide (21.0-32.0) mmol/L BUN (7-18) mg/dL Creatinine (0.51-1.17) mg/dL Est Cr Clr Drug Dosing mL/min Estimated GFR (MDRD) mL/min Glucose (74-106) mg/dL POC Glucose 117 H 133 H (65-110) mg/dl Calcium (8.5-10.1) mg/dL Magnesium (1.8-2.4) mg/dL Total Bilirubin (0.2-1.0) mg/dL AST (15-37) U/L ALT (12-78) U/L Alkaline Phosphatase (46-116) IU/L C-Reactive Protein (<=0.9) mg/dL Total Protein (6.4-8.2) g/dL Albumin (3.4-5.0) g/dL [place] Results Last 24 Hours: Microbiology 08/19/18 13:00 Stool Occult Blood ([facility]BIN) - Final Stool / Feces NEGATIVE OCCULT BLOOD Med Orders - Current: Current Medications Acetaminophen (Tylenol) 650 mg PO Q4H PRN PRN Reason: analgesia/fever Last Admin: 08/19/18 07:43 Dose: 650 mg Enalaprilat (Vasotec Iv) 0.625 mg IVPUSH ONETIME ONE Stop: 08/20/18 08:01 Fentanyl (Sublimaze) 100 mcg IVPUSH Q3H PRN PRN Reason: Pain Last Admin: 08/18/18 00:11 Dose: 100 mcg Ciprofloxacin/Dextrose 400 mg/ (Premix) 200 mls @ 200 mls/hr IV Q12H [facility] Last Admin: 08/19/18 14:43 Dose: 200 mls/hr Metronidazole 500 mg/ Premix 100 mls @ 100 mls/hr IV Q8H [facility] Last Admin: 08/19/18 22:05 Dose: 100 mls/hr Lactated Ringer's (Ringers, Lactated) 1,000 mls @ 100 mls/hr IV ASDIRECTED [place] Metoprolol Tartrate (Lopressor) 5 mg IVPUSH ONETIME ONE Stop: 08/20/18 09:01 Ondansetron HCl (Zofran) 4 mg IVPUSH Q4H PRN PRN Reason: Nausea/Vomiting Last Admin: 08/18/18 00:12 Dose: 4 mg Pantoprazole Sodium (Protonix Iv) 40 mg IVPUSH BEDTIME [facility] Last Admin: 08/19/18 22:05 Dose: 40 mg Sodium Chloride (Saline Flush) 10 ml FLUSH ASDIRECTED PRN PRN Reason: Keep Vein Open Last Admin: 08/19/18 22:12 Dose: 10 ml Temazepam (Restoril) 15 mg PO BEDTIME PRN PRN Reason: Insomnia Last Admin: 08/18/18 00:11 Dose: 15 mg Discontinued Medications Al Hydroxide/Mg Hydroxide (Gi Cocktail) 30 ml PO ONETIME ONE Stop: 08/17/18 03:27 Last Admin: 08/17/18 03:32 Dose: 30 ml Atorvastatin Calcium (Lipitor) 40 mg PO BEDTIME [facility] Diltiazem HCl (Diltiazem) 20 mg IVPUSH ONETIME ONE Stop: 08/17/18 17:19 Last Admin: 08/17/18 18:04 Dose: 20 mg Famotidine (Pepcid) 20 mg IVPUSH ONETIME ONE Stop: 08/17/18 03:27 Last Admin: 08/17/18 03:32 Dose: 20 mg Fentanyl (Sublimaze) 100 mcg IVPUSH ONETIME ONE Stop: 08/17/18 13:34 Last Admin: 08/17/18 14:06 Dose: 100 mcg Sodium Chloride (Normal Saline) 1,000 mls @ 500 mls/hr IV .BOLUS ONE Stop: 08/17/18 05:25 Last Admin: 08/17/18 03:37 Dose: 500 mls/hr Magnesium Sulfate/Dextrose (Magnesium 1 Gm In D5w 100 Ml) 100 mls @ 100 mls/hr IV ONETIME ONE Stop: 08/17/18 05:29 Last Admin: 08/17/18 04:53 Dose: 100 mls/hr Lactated Ringer's (Ringers, Lactated) 1,000 mls @ 50 mls/hr IV ASDIRECTED [facility] Last Admin: 08/19/18 16:52 Dose: 100 mls/hr Levothyroxine Sodium (Levothyroxine) 75 mcg PO ACBREAKFAST [facility] Last Admin: 08/17/18 09:20 Dose: 75 mcg Lisinopril (Prinivil) 10 mg PO DAILY@18 [facility] Last Admin: 08/18/18 17:33 Dose: 10 mg Lisinopril (Prinivil) 20 mg PO ONETIME ONE Stop: 08/18/18 12:01 Last Admin: 08/18/18 12:30 Dose: 20 mg Lisinopril (Prinivil) 10 mg PO BID [facility] Last Admin: 08/19/18 18:08 Dose: 10 mg Magnesium Oxide (Magnesium Oxide) 400 mg PO BID [facility] Last Admin: 08/17/18 09:19 Dose: 400 mg Metformin HCl (Glucophage) 500 mg PO BIDMEALS [facility] Last Admin: 08/17/18 09:20 Dose: 500 mg Metoprolol Succinate (Toprol Xl) 25 mg PO DAILY [facility] Last Admin: 08/19/18 07:35 Dose: 25 mg Morphine Sulfate (Morphine) 4 mg IVPUSH ONETIME ONE Stop: 08/17/18 04:22 Last Admin: 08/17/18 04:35 Dose: 4 mg Nifedipine (Procardia) 10 mg PO ONETIME STA Stop: 08/17/18 19:46 Last Admin: 08/17/18 19:55 Dose: 10 mg Ondansetron HCl (Zofran) 4 mg IVPUSH ONETIME ONE Stop: 08/17/18 04:22 Last Admin: 08/17/18 04:35 Dose: 4 mg Ondansetron HCl (Zofran) 8 mg IVPUSH ONETIME ONE Stop: 08/17/18 13:34 Last Admin: 08/17/18 14:06 Dose: 8 mg Pantoprazole Sodium (Protonix Iv) 40 mg IVPUSH ONETIME ONE Stop: 08/17/18 03:27 Last Admin: 08/17/18 03:32 Dose: 40 mg Promethazine HCl (Phenergan) 25 mg IM ONETIME ONE Stop: 08/17/18 17:20 Last Admin: 08/17/18 18:11 Dose: 25 mg - Exam General: Alert, Cooperative, No Acute Distress HEENT: Pupils Equal, Pupils Reactive, Mucous Membr. Moist/[place] Neck: Trachea Midline, No JVD Lungs: Clear to Auscultation, Normal Respiratory Effort Cardiovascular: Regular Rate, Regular Rhythm GI/Abdominal Exam: Normal Bowel Sounds, Soft, Non-Tender, No Distention (Female) Exam: Deferred Back Exam: Normal Inspection Extremities: Normal Inspection, Non-Tender, No Pedal Edema Skin: Warm, Dry, Intact Neurological: No New Focal Deficit Psy/Mental Status: Alert, Normal Affect, Normal Mood - Problem List & Annotations (1) Acute cholecystitis due to biliary calculus SNOMED Code(s): 33332154673440 Code(s): K80.00 - CALCULUS OF GALLBLADDER W ACUTE CHOLECYST W/O OBSTRUCTION Status: Acute Priority: High Current Visit: Yes (2) Diabetes SNOMED Code(s): 92754743 Code(s): E11.9 - TYPE 2 DIABETES MELLITUS WITHOUT COMPLICATIONS Status: Chronic Priority: Low Current Visit: No Qualifiers: Diabetes mellitus type: type 2 Diabetes mellitus complication status: with hyperglycemia Annotation/Comment:: (3) GERD (gastroesophageal reflux disease) SNOMED Code(s): 688961555 Code(s): K21.9 - GASTRO-ESOPHAGEAL REFLUX DISEASE WITHOUT ESOPHAGITIS Status: Chronic Priority: High Current Visit: No Qualifiers: Esophagitis presence: esophagitis presence not specified Qualified Code(s) : K21.9 - Gastro-esophageal reflux disease without esophagitis Annotation/Comment:: History of GERD/heartburn symptoms. Pain tonight improved with GI cocktail. Protonix and Pepcid given IV. H.Pylorie screen ordered. (4) Hypertension SNOMED Code(s): 03224949 Code(s): I10 - ESSENTIAL (PRIMARY) HYPERTENSION Status: Chronic Priority : Medium Current Visit: No Qualifiers: Hypertension type: essential hypertension Qualified Code(s): I10 - Essential (primary) hypertension (5) Hypomagnesemia SNOMED Code(s): 650158927 Code(s): E83.42 - HYPOMAGNESEMIA Status: Chronic Priority: Medium Current Visit: No Annotation/Comment:: Will give supplemental Mag. Patient's home dose of Magnesium will need to be increased at time of discharge. (6) Hx of CABG SNOMED Code(s): 941764607, 430174350 Code(s): Z95.1 - PRESENCE OF AORTOCORONARY BYPASS GRAFT Status: Acute Priority: Medium Current Visit: Yes (7) Atherosclerotic coronary vascular disease SNOMED Code(s): 765704822 Code(s): I25.10 - ATHSCL HEART DISEASE OF [place] CORONARY ARTERY W/O ANG PCTRS Status: Acute Current Visit: Yes Qualifiers: Coronary Disease-Associated Artery/Lesion type: bypass graft [place] vs. transplanted heart: [place] heart Associated angina: without angina Qualified Code(s): I25.810 - Atherosclerosis of coronary artery bypass graft(s) without angina pectoris - Problem List Review Problem List Initiated/Reviewed/Updated: Yes - My Orders Last 24 Hours: My Active Orders 08/20/18 05:11 CBC WITH AUTO DIFF [HEME] DAILY CMP [COMPREHENSIVE METABOLIC PN,CMP] [CHEM] DAILY CRP [C-REACTIVE PROTEIN] [CHEM] DAILY 08/20/18 08:00 Enalaprilat [Vasotec IV] 0.625 mg IVPUSH ONETIME ONE Lactated Ringers @ 100 MLS/HR(1,000ml) Lactated Ringers [Ringers, Lactated] 1, 000 ml IV ASDIRECTED 08/20/18 09:00 Metoprolol Tartrate [Lopressor] 5 mg IVPUSH ONETIME ONE 08/20/18 Breakfast Nothing per Oral After Midnight Diet [DIET] - Plan Plan:: 08/17/18 Aleksandr Ya MD Change to inpatient. Ultrasound confirms acute cholecystitis with cholelithiasis. Start IV antibiotics, restart IV fluids, and consult surgeon. 08/18/18 Aleksandr Ya MD She does feel better today. Continue IV fluids, IV antibiotics, and awaiting surgeon consultation. 08/19/18 Aleksandr Ya MD Feeling okay. Lab results reviewed. Continue IV antibiotics. Surgeon to evaluate tomorrow.
[2018-08-20] MEDS: Ciprofloxacin in D5W 400 MG in Premix Bag 1 BAG IV SCH ×4 (03:01→14:25)
[2018-08-20] MEDS: Sodium Chloride 0.9% 10 ML Syringe FLUSH PRN ×8 (03:01→22:45)
[2018-08-20] MEDS: metroNIDAZOLE/Normal Saline 500 MG in Premix Bag 1 BAG IV SCH ×3 (07:19→22:43)
[2018-08-20 07:55] LABS: CHLORIDE,CL 100 mmol/L (98-107); SODIUM,NA 137 mmol/L (136-145)
[2018-08-20] MEDS ORDERED: Enalaprilat 1.25 MG/ML SDV IVPUSH ONE (08:00)
[2018-08-20] MEDS ORDERED: Midazolam 1 MG/ML 2 ML SDV ONE ×2 (08:14→11:25)
[2018-08-20] MEDS ORDERED: Propofol 200 MG/20 ML SDV ONE ×3 (08:14→11:25)
[2018-08-20] MEDS ORDERED: fentaNYL 250 MCG/5 ML SDV ONE ×2 (08:14→11:25)
[2018-08-20] MEDS: Lactated Ringers 1,000 ML IV SCH ×2 (08:23→15:33)
[2018-08-20] MEDS ORDERED: Metoprolol Tartrate 5 MG/5 ML SDV IVPUSH ONE (09:00)
--- NOTE | 2018-08-20 11:13 | PCM.PN ---
- General Info Date of Service: 08/20/18 - Review of Systems Systems Review Comment:: 67-year-old female recently admitted with upper abdominal pain and nausea. She is been evaluated and found to have acute cholecystitis with cholelithiasis on ultrasound. She has received IV antibiotic therapy and her pain has improved although she still has tenderness in the right upper quadrant. Her liver functions appears satisfactory including a normal bilirubin. I have discussed this with the patient and her recommended to her proceeding with cholecystectomy. I discussed the proposed cholecystectomy with the patient I reviewed indications options and risks. We also discussed the possible need to convert to an open procedure. She agrees to proceed. Her recent hospital documentation is reviewed. No significant changes are noted this morning. - Patient Data Vitals - Most Recent: Last Vital Signs Temp 97.6 F 08/20/18 07:18 Pulse 79 08/20/18 08:33 Resp 18 08/20/18 07:18 BP 148/78 H 08/20/18 08:33 Pulse Ox 95 08/20/18 07:18 Weight - Most Recent: 86.727 kg I&O - Last 24 Hours: Intake & Output 08/19/18 08/20/18 08/20/18 22:59 06:59 14:59 Intake Total 2037 300 Output Total 300 Balance 1737 300 Lab Results Last 24 Hours: Laboratory Results - last 24 hr 08/19/18 08/19/18 08/20/18 Range/Units 11:07 17:18 07:15 WBC (4.0-10.2) K/uL RBC (3.77-5.09) M/uL Hgb (11.7-15.5) g/dL Hct (34.0-46.0) % MCV (84.0-98.0) fL MCH (28.2-33.3) pg MCHC (31.7-36.0) g/dL RDW (11.2-14.1) % Plt Count (150-350) K/uL Neut % (Auto) (45.0-80.0) % Lymph % (Auto) (10.0-50.0) % [place] % (Auto) (2.0-14.0) % Eos % (Auto) (0.0-5.0) % Baso % (Auto) (0.0-2.0) % Neut # (Auto) (1.40-7.00) K/uL Lymph # (Auto) (0.50-3.50) K/uL [place] # (Auto) (0.00-1.00) K/uL Eos # (Auto) (0.00-0.50) K/uL Baso # (Auto) (0.00-0.20) K/uL Sodium (136-145) mmol/L Potassium (3.5-5.1) mmol/L Chloride (98-107) mmol/L Carbon Dioxide (21.0-32.0) mmol/L BUN (7-18) mg/dL Creatinine (0.51-1.17) mg/dL Est Cr Clr Drug Dosing mL/min Estimated GFR (MDRD) mL/min Glucose (74-106) mg/dL POC Glucose 117 H 133 H 139 H (65-110) mg/dl Calcium (8.5-10.1) mg/dL Total Bilirubin (0.2-1.0) mg/dL AST (15-37) U/L ALT (12-78) U/L Alkaline Phosphatase (46-116) IU/L C-Reactive Protein (<=0.9) mg/dL Total Protein (6.4-8.2) g/dL Albumin (3.4-5.0) g/dL 08/20/18 08/20/18 Range/Units 07:25 07:25 WBC 9.4 (4.0-10.2) K/uL RBC 3.54 L (3.77-5.09) M/uL Hgb 11.3 L (11.7-15.5) g/dL Hct 34.3 (34.0-46.0) % MCV 96.9 (84.0-98.0) fL MCH 31.9 (28.2-33.3) pg MCHC 32.9 (31.7-36.0) g/dL RDW 12.4 (11.2-14.1) % Plt Count 272 (150-350) K/uL Neut % (Auto) 71.2 (45.0-80.0) % Lymph % (Auto) 12.9 (10.0-50.0) % [place] % (Auto) 10.0 (2.0-14.0) % Eos % (Auto) 5.7 H (0.0-5.0) % Baso % (Auto) 0.2 (0.0-2.0) % Neut # (Auto) 6.72 (1.40-7.00) K/uL Lymph # (Auto) 1.22 (0.50-3.50) K/uL [place] # (Auto) 0.94 (0.00-1.00) K/uL Eos # (Auto) 0.54 H (0.00-0.50) K/uL Baso # (Auto) 0.02 (0.00-0.20) K/uL Sodium 137 (136-145) mmol/L Potassium 3.5 (3.5-5.1) mmol/L Chloride 100 (98-107) mmol/L Carbon Dioxide 29.9 (21.0-32.0) mmol/L BUN 8 (7-18) mg/dL Creatinine 0.77 (0.51-1.17) mg/dL Est Cr Clr Drug Dosing 55.59 mL/min Estimated GFR (MDRD) > 60 mL/min Glucose 140 H (74-106) mg/dL POC Glucose (65-110) mg/dl Calcium 8.2 L (8.5-10.1) mg/dL Total Bilirubin 0.5 (0.2-1.0) mg/dL AST 18 (15-37) U/L ALT 19 (12-78) U/L Alkaline Phosphatase 76 (46-116) IU/L C-Reactive Protein 22.1 H (<=0.9) mg/dL Total Protein 6.3 L (6.4-8.2) g/dL Albumin 2.3 L (3.4-5.0) g/dL [place] Results Last 24 Hours: Microbiology 08/19/18 13:00 Helicobacter pylori Antigen - Final Stool / Feces 08/19/18 13:00 Stool Occult Blood ([facility]) - Final Stool / Feces NEGATIVE OCCULT BLOOD Med Orders - Current: Current Medications Acetaminophen (Tylenol) 650 mg PO Q4H PRN PRN Reason: analgesia/fever Last Admin: 08/19/18 07:43 Dose: 650 mg Fentanyl (Sublimaze) 100 mcg IVPUSH Q3H PRN PRN Reason: Pain Last Admin: 08/18/18 00:11 Dose: 100 mcg Ciprofloxacin/Dextrose 400 mg/ (Premix) 200 mls @ 200 mls/hr IV Q12H [facility] Last Admin: 08/20/18 03:01 Dose: 200 mls/hr Metronidazole 500 mg/ Premix 100 mls @ 100 mls/hr IV Q8H [facility] Last Admin: 08/20/18 07:19 Dose: 100 mls/hr Lactated Ringer's (Ringers, Lactated) 1,000 mls @ 100 mls/hr IV ASDIRECTED [facility] Last Admin: 08/20/18 08:23 Dose: 100 mls/hr Ondansetron HCl (Zofran) 4 mg IVPUSH Q4H PRN PRN Reason: Nausea/Vomiting Last Admin: 08/18/18 00:12 Dose: 4 mg Pantoprazole Sodium (Protonix Iv) 40 mg IVPUSH BEDTIME [facility] Last Admin: 08/19/18 22:05 Dose: 40 mg Sodium Chloride (Saline Flush) 10 ml FLUSH ASDIRECTED PRN PRN Reason: Keep Vein Open Last Admin: 08/20/18 08:24 Dose: 10 ml Temazepam (Restoril) 15 mg PO BEDTIME PRN PRN Reason: Insomnia Last Admin: 08/18/18 00:11 Dose: 15 mg Discontinued Medications Al Hydroxide/Mg Hydroxide (Gi Cocktail) 30 ml PO ONETIME ONE Stop: 08/17/18 03:27 Last Admin: 08/17/18 03:32 Dose: 30 ml Atorvastatin Calcium (Lipitor) 40 mg PO BEDTIME [facility] Diltiazem HCl (Diltiazem) 20 mg IVPUSH ONETIME ONE Stop: 08/17/18 17:19 Last Admin: 08/17/18 18:04 Dose: 20 mg Enalaprilat (Vasotec Iv) 0.625 mg IVPUSH ONETIME ONE Stop: 08/20/18 08:01 Last Admin: 08/20/18 07:21 Dose: 0.625 mg Famotidine (Pepcid) 20 mg IVPUSH ONETIME ONE Stop: 08/17/18 03:27 Last Admin: 08/17/18 03:32 Dose: 20 mg Fentanyl (Sublimaze) 100 mcg IVPUSH ONETIME ONE Stop: 08/17/18 13:34 Last Admin: 08/17/18 14:06 Dose: 100 mcg Fentanyl (Sublimaze) Confirm Administered Dose 250 mcg .ROUTE .STK-MED ONE Stop: 08/20/18 08:15 Sodium Chloride (Normal Saline) 1,000 mls @ 500 mls/hr IV .BOLUS ONE Stop: 08/17/18 05:25 Last Admin: 08/17/18 03:37 Dose: 500 mls/hr Magnesium Sulfate/Dextrose (Magnesium 1 Gm In D5w 100 Ml) 100 mls @ 100 mls/hr IV ONETIME ONE Stop: 08/17/18 05:29 Last Admin: 08/17/18 04:53 Dose: 100 mls/hr Lactated Ringer's (Ringers, Lactated) 1,000 mls @ 50 mls/hr IV ASDIRECTED [facility] Last Admin: 08/19/18 16:52 Dose: 100 mls/hr Levothyroxine Sodium (Levothyroxine) 75 mcg PO ACBREAKFAST [facility] Last Admin: 08/17/18 09:20 Dose: 75 mcg Lisinopril (Prinivil) 10 mg PO DAILY@18 [facility] Last Admin: 08/18/18 17:33 Dose: 10 mg Lisinopril (Prinivil) 20 mg PO ONETIME ONE Stop: 08/18/18 12:01 Last Admin: 08/18/18 12:30 Dose: 20 mg Lisinopril (Prinivil) 10 mg PO BID [facility] Last Admin: 08/19/18 18:08 Dose: 10 mg Magnesium Oxide (Magnesium Oxide) 400 mg PO BID [facility] Last Admin: 08/17/18 09:19 Dose: 400 mg Metformin HCl (Glucophage) 500 mg PO BIDMEALS [facility] Last Admin: 08/17/18 09:20 Dose: 500 mg Metoprolol Succinate (Toprol Xl) 25 mg PO DAILY [facility] Last Admin: 08/19/18 07:35 Dose: 25 mg Metoprolol Tartrate (Lopressor) 5 mg IVPUSH ONETIME ONE Stop: 08/20/18 09:01 Last Admin: 08/20/18 08:33 Dose: 5 mg Midazolam HCl (Versed 1 Mg/Ml) Confirm Administered Dose 2 mg .ROUTE .STK-MED ONE Stop: 08/20/18 08:15 Morphine Sulfate (Morphine) 4 mg IVPUSH ONETIME ONE Stop: 08/17/18 04:22 Last Admin: 08/17/18 04:35 Dose: 4 mg Nifedipine (Procardia) 10 mg PO ONETIME STA Stop: 08/17/18 19:46 Last Admin: 08/17/18 19:55 Dose: 10 mg Ondansetron HCl (Zofran) 4 mg IVPUSH ONETIME ONE Stop: 08/17/18 04:22 Last Admin: 08/17/18 04:35 Dose: 4 mg Ondansetron HCl (Zofran) 8 mg IVPUSH ONETIME ONE Stop: 08/17/18 13:34 Last Admin: 08/17/18 14:06 Dose: 8 mg Pantoprazole Sodium (Protonix Iv) 40 mg IVPUSH ONETIME ONE Stop: 08/17/18 03:27 Last Admin: 08/17/18 03:32 Dose: 40 mg Promethazine HCl (Phenergan) 25 mg IM ONETIME ONE Stop: 08/17/18 17:20 Last Admin: 08/17/18 18:11 Dose: 25 mg Propofol (Diprivan 20 Ml) Confirm Administered Dose 200 mg .ROUTE .STK-MED ONE Stop: 08/20/18 08:15 - Problem List Review Problem List Initiated/Reviewed/Updated: Yes - Assessment Assessment:: acute cholecystitis with cholelithiasis - Plan Plan:: Cholecystectomy
[2018-08-20] MEDS ORDERED: [UNRECOGNIZED DRUG - OTHER] ONE (11:25)
[2018-08-20] MEDS ORDERED: Succinylcholine 200 MG/10 ML MDV ONE (11:25)
[2018-08-20] MEDS ORDERED: Metoprolol Tartrate 5 MG/5 ML SDV ONE (11:25)
[2018-08-20] MEDS ORDERED: Dexamethasone 10 MG/ML SDV ONE (11:25)
[2018-08-20] MEDS ORDERED: metroNIDAZOLE/Normal Saline 500 MG/100 ML Premix Bag ONE (11:25)
[2018-08-20] MEDS ORDERED: ePHEDrine 50 MG/ML SDV ONE (11:25)
[2018-08-20] MEDS ORDERED: Neostigmine Methylsulfate 10 MG/10 ML MDV ONE (11:25)
[2018-08-20] MEDS ORDERED: Ondansetron 4 MG/2 ML SDV ONE (11:25)
[2018-08-20] MEDS ORDERED: Glycopyrrolate 0.2 MG/ML SDV ONE (11:25)
[2018-08-20] MEDS ORDERED: Bupivacaine 0.25%/EPINEPHrine 1:200,000 30 ML SDV INJECT ONE (11:49)
[2018-08-20] MEDS ORDERED: Bacitracin Oint 1 GM U/D Packet TOP ONE (13:38)
--- NOTE | 2018-08-20 13:51 | PCM.OPNOTE ---
- General Post-Op/Procedure Note Date of Surgery/Procedure: 08/20/18 Operative Procedure(s): Laparoscopic cholecystectomy Findings: Severely acutely inflamed gallbladder with stones Pre Op Diagnosis: Acute Cholecystitis with Cholelithiasis Post-Op Diagnosis: Same Anesthesia Technique: General ET Tube Primary Surgeon: Marcus Watkins Pathology: Gallbaldder with stones Output, Urine Amount: 0 EBL in mLs: 100 Surgical Drain/Tube Type: Felipe Mac Drain Complications: None Condition: Good Free Text/Narrative:: Intake & Output 08/19/18 08/20/18 08/20/18 22:59 06:59 14:59 Intake Total 2037 300 Output Total 300 Balance 1737 300
[2018-08-20] MEDS: fentaNYL 100 MCG/2 ML SDV IVPUSH PRN ×2 (15:33→20:51)
--- NOTE | 2018-08-20 16:21 | PCM.PN ---
- General Info Date of Service: 08/20/18 Functional Status: Reports: Other (post op) - Review of Systems General: Reports: No Symptoms HEENT: Reports: No Symptoms Pulmonary: Reports: No Symptoms Cardiovascular: Reports: No Symptoms Gastrointestinal: Reports: Abdominal Pain (post op) Genitourinary: Reports: No Symptoms Musculoskeletal: Reports: No Symptoms Skin: Reports: No Symptoms Neurological: Reports: No Symptoms Psychiatric: Reports: No Symptoms - Patient Data Vitals - Most Recent: Last Vital Signs Temp 96.3 F 08/20/18 16:00 Pulse 70 08/20/18 16:00 Resp 17 08/20/18 16:00 BP 147/72 H 08/20/18 16:00 Pulse Ox 94 L 08/20/18 14:50 Weight - Most Recent: 191 lb 3.205 oz I&O - Last 24 Hours: Intake & Output 08/20/18 08/20/18 08/20/18 06:59 14:59 22:59 Intake Total 300 Output Total 0 Balance 300 0 Lab Results Last 24 Hours: Laboratory Results - last 24 hr 08/19/18 08/20/18 08/20/18 Range/Units 17:18 07:15 07:25 WBC 9.4 (4.0-10.2) K/uL RBC 3.54 L (3.77-5.09) M/uL Hgb 11.3 L (11.7-15.5) g/dL Hct 34.3 (34.0-46.0) % MCV 96.9 (84.0-98.0) fL MCH 31.9 (28.2-33.3) pg MCHC 32.9 (31.7-36.0) g/dL RDW 12.4 (11.2-14.1) % Plt Count 272 (150-350) K/uL Neut % (Auto) 71.2 (45.0-80.0) % Lymph % (Auto) 12.9 (10.0-50.0) % Braxton % (Auto) 10.0 (2.0-14.0) % Eos % (Auto) 5.7 H (0.0-5.0) % Baso % (Auto) 0.2 (0.0-2.0) % Neut # (Auto) 6.72 (1.40-7.00) K/uL Lymph # (Auto) 1.22 (0.50-3.50) K/uL Braxton # (Auto) 0.94 (0.00-1.00) K/uL Eos # (Auto) 0.54 H (0.00-0.50) K/uL Baso # (Auto) 0.02 (0.00-0.20) K/uL Sodium (136-145) mmol/L Potassium (3.5-5.1) mmol/L Chloride (98-107) mmol/L Carbon Dioxide (21.0-32.0) mmol/L BUN (7-18) mg/dL Creatinine (0.51-1.17) mg/dL Est Cr Clr Drug Dosing mL/min Estimated GFR (MDRD) mL/min Glucose (74-106) mg/dL POC Glucose 133 H 139 H (65-110) mg/dl Calcium (8.5-10.1) mg/dL Total Bilirubin (0.2-1.0) mg/dL AST (15-37) U/L ALT (12-78) U/L Alkaline Phosphatase (46-116) IU/L C-Reactive Protein (<=0.9) mg/dL Total Protein (6.4-8.2) g/dL Albumin (3.4-5.0) g/dL 08/20/18 08/20/18 Range/Units 07:25 14:55 WBC 9.9 (4.0-10.2) K/uL RBC 3.71 L (3.77-5.09) M/uL Hgb 12.1 (11.7-15.5) g/dL Hct 35.5 (34.0-46.0) % MCV 95.7 (84.0-98.0) fL MCH 32.6 (28.2-33.3) pg MCHC 34.1 (31.7-36.0) g/dL RDW 12.3 (11.2-14.1) % Plt Count 280 (150-350) K/uL Neut % (Auto) 88.7 H (45.0-80.0) % Lymph % (Auto) 5.6 L (10.0-50.0) % Braxton % (Auto) 4.5 (2.0-14.0) % Eos % (Auto) 1.0 (0.0-5.0) % Baso % (Auto) 0.2 (0.0-2.0) % Neut # (Auto) 8.74 H (1.40-7.00) K/uL Lymph # (Auto) 0.55 (0.50-3.50) K/uL Braxton # (Auto) 0.44 (0.00-1.00) K/uL Eos # (Auto) 0.10 (0.00-0.50) K/uL Baso # (Auto) 0.02 (0.00-0.20) K/uL Sodium 137 (136-145) mmol/L Potassium 3.5 (3.5-5.1) mmol/L Chloride 100 (98-107) mmol/L Carbon Dioxide 29.9 (21.0-32.0) mmol/L BUN 8 (7-18) mg/dL Creatinine 0.77 (0.51-1.17) mg/dL Est Cr Clr Drug Dosing 55.59 mL/min Estimated GFR (MDRD) > 60 mL/min Glucose 140 H (74-106) mg/dL POC Glucose (65-110) mg/dl Calcium 8.2 L (8.5-10.1) mg/dL Total Bilirubin 0.5 (0.2-1.0) mg/dL AST 18 (15-37) U/L ALT 19 (12-78) U/L Alkaline Phosphatase 76 (46-116) IU/L C-Reactive Protein 22.1 H (<=0.9) mg/dL Total Protein 6.3 L (6.4-8.2) g/dL Albumin 2.3 L (3.4-5.0) g/dL [place] Results Last 24 Hours: Microbiology 08/19/18 13:00 Helicobacter pylori Antigen - Final Stool / Feces 08/19/18 13:00 Stool Occult Blood (ALBIN) - Final Stool / Feces NEGATIVE OCCULT BLOOD Med Orders - Current: Current Medications Acetaminophen (Tylenol) 650 mg PO Q4H PRN PRN Reason: analgesia/fever Last Admin: 08/19/18 07:43 Dose: 650 mg Fentanyl (Sublimaze) 100 mcg IVPUSH Q3H PRN PRN Reason: Pain Last Admin: 08/20/18 15:33 Dose: 100 mcg Ciprofloxacin/Dextrose 400 mg/ (Premix) 200 mls @ 200 mls/hr IV Q12H [facility] Last Admin: 08/20/18 14:25 Dose: Not Given Metronidazole 500 mg/ Premix 100 mls @ 100 mls/hr IV Q8H [facility] Last Admin: 08/20/18 14:25 Dose: Not Given Lactated Ringer's (Ringers, Lactated) 1,000 mls @ 100 mls/hr IV ASDIRECTED [facility] Last Admin: 08/20/18 15:33 Dose: 100 mls/hr Lisinopril (Prinivil) 10 mg PO DAILY@1800 [facility] Metoprolol Succinate (Toprol Xl) 25 mg PO DAILY [facility] Ondansetron HCl (Zofran) 4 mg IVPUSH Q4H PRN PRN Reason: Nausea/Vomiting Last Admin: 08/18/18 00:12 Dose: 4 mg Pantoprazole Sodium (Protonix Iv) 40 mg IVPUSH BEDTIME [facility] Last Admin: 08/19/18 22:05 Dose: 40 mg Sodium Chloride (Saline Flush) 10 ml FLUSH ASDIRECTED PRN PRN Reason: Keep Vein Open Last Admin: 08/20/18 08:24 Dose: 10 ml Temazepam (Restoril) 15 mg PO BEDTIME PRN PRN Reason: Insomnia Last Admin: 08/18/18 00:11 Dose: 15 mg Discontinued Medications Al Hydroxide/Mg Hydroxide (Gi Cocktail) 30 ml PO ONETIME ONE Stop: 08/17/18 03:27 Last Admin: 08/17/18 03:32 Dose: 30 ml Atorvastatin Calcium (Lipitor) 40 mg PO BEDTIME [facility] Bacitracin (Bacitracin Oint 1 Gm) 1 dose TOP .STK-MED ONE Stop: 08/20/18 13:39 Last Admin: 08/20/18 13:38 Dose: 1 dose Bupivacaine HCl/Epinephrine Bitart (Marcaine 0.25%/Epinephrine 1:200,000) 30 ml INJECT .STK-MED ONE Stop: 08/20/18 11:50 Last Admin: 08/20/18 11:49 Dose: 30 ml Ciprofloxacin/Dextrose (Cipro In D5w 400 Mg/200 Ml) 400 mg .ROUTE .STK-MED ONE Stop: 08/20/18 11:26 Dexamethasone (Dexamethasone) 8 mg .ROUTE .STK-MED ONE Stop: 08/20/18 11:26 Diltiazem HCl (Diltiazem) 20 mg IVPUSH ONETIME ONE Stop: 08/17/18 17:19 Last Admin: 08/17/18 18:04 Dose: 20 mg Enalaprilat (Vasotec Iv) 0.625 mg IVPUSH ONETIME ONE Stop: 08/20/18 08:01 Last Admin: 08/20/18 07:21 Dose: 0.625 mg Ephedrine Sulfate (Ephedrine Sulfate) 10 mg .ROUTE .STK-MED ONE Stop: 08/20/18 11:26 Famotidine (Pepcid) 20 mg IVPUSH ONETIME ONE Stop: 08/17/18 03:27 Last Admin: 08/17/18 03:32 Dose: 20 mg Fentanyl (Sublimaze) 100 mcg IVPUSH ONETIME ONE Stop: 08/17/18 13:34 Last Admin: 08/17/18 14:06 Dose: 100 mcg Fentanyl (Sublimaze) Confirm Administered Dose 250 mcg .ROUTE .STK-MED ONE Stop: 08/20/18 08:15 Fentanyl (Sublimaze) 250 mcg .ROUTE .STK-MED ONE Stop: 08/20/18 11:26 Glycopyrrolate (Robinul) 0.8 mg .ROUTE .STK-MED ONE Stop: 08/20/18 11:26 Sodium Chloride (Normal Saline) 1,000 mls @ 500 mls/hr IV .BOLUS ONE Stop: 08/17/18 05:25 Last Admin: 08/17/18 03:37 Dose: 500 mls/hr Magnesium Sulfate/Dextrose (Magnesium 1 Gm In D5w 100 Ml) 100 mls @ 100 mls/hr IV ONETIME ONE Stop: 08/17/18 05:29 Last Admin: 08/17/18 04:53 Dose: 100 mls/hr Lactated Ringer's (Ringers, Lactated) 1,000 mls @ 50 mls/hr IV ASDIRECTED [facility] Last Admin: 08/19/18 16:52 Dose: 100 mls/hr Levothyroxine Sodium (Levothyroxine) 75 mcg PO ACBREAKFAST [facility] Last Admin: 08/17/18 09:20 Dose: 75 mcg Lisinopril (Prinivil) 10 mg PO DAILY@18 GRAY Last Admin: 08/18/18 17:33 Dose: 10 mg Lisinopril (Prinivil) 20 mg PO ONETIME ONE Stop: 08/18/18 12:01 Last Admin: 08/18/18 12:30 Dose: 20 mg Lisinopril (Prinivil) 10 mg PO BID [facility] Last Admin: 08/19/18 18:08 Dose: 10 mg Magnesium Oxide (Magnesium Oxide) 400 mg PO BID [facility] Last Admin: 08/17/18 09:19 Dose: 400 mg [facility] Last Admin: 08/17/18 09:20 Dose: 500 mg Metoprolol Succinate (Toprol Xl) 25 mg PO DAILY [facility] Last Admin: 08/19/18 07:35 Dose: 25 mg Metoprolol Tartrate (Lopressor) 5 mg IVPUSH ONETIME ONE Stop: 08/20/18 09:01 Last Admin: 08/20/18 08:33 Dose: 5 mg Metoprolol Tartrate (Lopressor) 10 mg .ROUTE .STK-MED ONE Stop: 08/20/18 11:26 Metronidazole (Flagyl 500 Mg In Ns 100 Ml) 500 mg .ROUTE .STK-MED ONE Stop: 08/20/18 11:26 Midazolam HCl (Versed 1 Mg/Ml) Confirm Administered Dose 2 mg .ROUTE .STK-MED ONE Stop: 08/20/18 08:15 Midazolam HCl (Versed 1 Mg/Ml) 2 mg .ROUTE .STK-MED ONE Stop: 08/20/18 11:26 Morphine Sulfate (Morphine) 4 mg IVPUSH ONETIME ONE Stop: 08/17/18 04:22 Last Admin: 08/17/18 04:35 Dose: 4 mg Neostigmine Methylsulfate (Neostigmine Methylsulfate) 4 mg .ROUTE .STK-MED ONE Stop: 08/20/18 11:26 Nifedipine (Procardia) 10 mg PO ONETIME STA Stop: 08/17/18 19:46 Last Admin: 08/17/18 19:55 Dose: 10 mg Ondansetron HCl (Zofran) 4 mg IVPUSH ONETIME ONE Stop: 08/17/18 04:22 Last Admin: 08/17/18 04:35 Dose: 4 mg Ondansetron HCl (Zofran) 8 mg IVPUSH ONETIME ONE Stop: 08/17/18 13:34 Last Admin: 08/17/18 14:06 Dose: 8 mg Ondansetron HCl (Zofran) 4 mg .ROUTE .STK-MED ONE Stop: 08/20/18 11:26 Pantoprazole Sodium (Protonix Iv) 40 mg IVPUSH ONETIME ONE Stop: 08/17/18 03:27 Last Admin: 08/17/18 03:32 Dose: 40 mg Promethazine HCl (Phenergan) 25 mg IM ONETIME ONE Stop: 08/17/18 17:20 Last Admin: 08/17/18 18:11 Dose: 25 mg Propofol (Diprivan 20 Ml) Confirm Administered Dose 200 mg .ROUTE .STK-MED ONE Stop: 08/20/18 08:15 Propofol (Diprivan 20 Ml) Confirm Administered Dose 200 mg .ROUTE .STK-MED ONE Stop: 08/20/18 11:13 Propofol (Diprivan 20 Ml) 200 mg .ROUTE .STK-MED ONE Stop: 08/20/18 11:26 Succinylcholine Chloride (Quelicin) 100 mg .ROUTE .STK-MED ONE Stop: 08/20/18 11:26 - Exam General: Alert, Cooperative HEENT: Mucous Membr. Moist/[place] Neck: Trachea Midline, No JVD Lungs: Clear to Auscultation, Normal Respiratory Effort Cardiovascular: Regular Rate, Regular Rhythm GI/Abdominal Exam: Soft, Other (J-P drain) (Female) Exam: Deferred Back Exam: Normal Inspection Extremities: Normal Inspection, Non-Tender, No Pedal Edema Skin: Warm, Dry, Intact Wound/Incisions: No Drainage Neurological: No New Focal Deficit Psy/Mental Status: Alert, Normal Affect, Normal Mood - Problem List & Annotations (1) Acute cholecystitis due to biliary calculus SNOMED Code(s): 66365210427867 Code(s): K80.00 - CALCULUS OF GALLBLADDER W ACUTE CHOLECYST W/O OBSTRUCTION Status: Acute Priority: High Current Visit: Yes (2) Diabetes SNOMED Code(s): 48306801 Code(s): E11.9 - TYPE 2 DIABETES MELLITUS WITHOUT COMPLICATIONS Status: Chronic Priority: Low Current Visit: No Qualifiers: Diabetes mellitus type: type 2 Diabetes mellitus complication status: with hyperglycemia Annotation/Comment:: (3) GERD (gastroesophageal reflux disease) SNOMED Code(s): 019259686 Code(s): K21.9 - GASTRO-ESOPHAGEAL REFLUX DISEASE WITHOUT ESOPHAGITIS Status: Chronic Priority: High Current Visit: No Qualifiers: Esophagitis presence: esophagitis presence not specified Qualified Code(s) : K21.9 - Gastro-esophageal reflux disease without esophagitis Annotation/Comment:: History of GERD/heartburn symptoms. Pain tonight improved with GI cocktail. Protonix and Pepcid given IV. H.Pylorie screen ordered. (4) Hypertension SNOMED Code(s): 82208507 Code(s): I10 - ESSENTIAL (PRIMARY) HYPERTENSION Status: Chronic Priority : Medium Current Visit: No Qualifiers: Hypertension type: essential hypertension Qualified Code(s): I10 - Essential (primary) hypertension (5) Hypomagnesemia SNOMED Code(s): 292049001 Code(s): E83.42 - HYPOMAGNESEMIA Status: Chronic Priority: Medium Current Visit: No Annotation/Comment:: Will give supplemental Mag. Patient's home dose of Magnesium will need to be increased at time of discharge. (6) Hx of CABG SNOMED Code(s): 620961683, 826385221 Code(s): Z95.1 - PRESENCE OF AORTOCORONARY BYPASS GRAFT Status: Acute Priority: Medium Current Visit: Yes (7) Atherosclerotic coronary vascular disease SNOMED Code(s): 633715473 Code(s): I25.10 - ATHSCL HEART DISEASE OF [place] CORONARY ARTERY W/O ANG PCTRS Status: Acute Current Visit: Yes Qualifiers: Coronary Disease-Associated Artery/Lesion type: bypass graft [place] vs. transplanted heart: [place] heart Associated angina: without angina Qualified Code(s): I25.810 - Atherosclerosis of coronary artery bypass graft(s) without angina pectoris - Problem List Review Problem List Initiated/Reviewed/Updated: Yes - My Orders Last 24 Hours: My Active Orders 08/20/18 08:00 Lactated Ringers [Ringers, Lactated] 1,000 ml IV ASDIRECTED 08/20/18 18:00 Lisinopril [Prinivil] 10 mg PO DAILY@1800 08/20/18 Breakfast Nothing per Oral After Midnight Diet [DIET] 08/21/18 05:11 CRP [C-REACTIVE PROTEIN] [CHEM] Routine 08/21/18 08:00 Metoprolol Succinate [Toprol XL] 25 mg PO DAILY - Assessment Assessment:: acute cholecystitis with cholelithiasis - Plan Plan:: Cholecystectomy 08/20/18 Aleksandr Ya MD Post op. Talked with Randi Gambino, and her daughter. J-P drain. Recheck in AM.
[2018-08-20] MEDS: Lisinopril 10 MG Tab PO SCH (17:31)
[2018-08-20] MEDS: Pantoprazole 40 MG Vial IVPUSH SCH (20:50)
[2018-08-21] MEDS: Sodium Chloride 0.9% 10 ML Syringe FLUSH PRN ×6 (02:18→15:06)
[2018-08-21] MEDS: Ciprofloxacin in D5W 400 MG in Premix Bag 1 BAG IV SCH ×4 (02:18→13:45)
[2018-08-21] MEDS: fentaNYL 100 MCG/2 ML SDV IVPUSH PRN (02:18)
[2018-08-21] MEDS: Lactated Ringers 1,000 ML IV SCH (03:22)
[2018-08-21 07:31] LABS: CHLORIDE,CL 101 mmol/L (98-107); SODIUM,NA 137 mmol/L (136-145)
[2018-08-21] MEDS: Metoprolol Succinate 25 MG Tab.ER PO SCH (08:04)
[2018-08-21] MEDS: metroNIDAZOLE/Normal Saline 500 MG in Premix Bag 1 BAG IV SCH ×2 (08:04→15:06)
--- NOTE | 2018-08-21 09:03 | OR ---
Date of Procedure: 08/20/2018 REFERRING PHYSICIAN: Melissa Lantigua MD PREOPERATIVE DIAGNOSIS: Acute cholecystitis with cholelithiasis. POSTOPERATIVE DIAGNOSIS: Acute cholecystitis with cholelithiasis. OPERATION PERFORMED: Laparoscopic cholecystectomy. INDICATIONS FOR SURGERY: This 67-year-old female who was admitted 4 days ago with upper abdominal pain. Workup has identified acute cholecystitis with cholelithiasis and she comes for cholecystectomy. FINDINGS: The patient's gallbladder shows severe acute inflammation. It was distended, has a very thick inflamed wall and the tissue was firm and dissection was difficult. The adjacent liver appears slightly thickened, but otherwise appears normal and no other intraabdominal abnormalities were noted. DESCRIPTION OF PROCEDURE: The patient was taken to the operating room. She was given general endotracheal anesthesia and the abdomen was sterilely prepped and draped. The supraumbilical stab wound incision was made. Through this, a Veress needle was inserted and pneumoperitoneum via this needle to a pressure of 15 mmHg was achieved with carbon dioxide. The Veress needle was then replaced with a 12-mm trocar into which the 10-mm 0-degree laparoscopic camera was inserted. Under direct visualization, 5-mm trocars were placed in the subxiphoid midline and in 2 areas of the right abdomen. All trocar sites were infiltrated with Marcaine prior to incision. Intraabdominal inspection was carried out and attention was turned to the gallbladder. Because it was markedly enlarged and distended, it was aspirated using an aspirating needle with evacuation of the liquid gallbladder contents. The gallbladder then could be manipulated with some difficulty, but was able to be moved enough so that the area could be exposed. Blunt dissection was used to free the adhesions of the omentum from the undersurface of the gallbladder until the lower portion of the gallbladder was able to be viewed. Careful blunt dissection was performed, isolating the structures below the gallbladder and with this dissection, the cystic artery was able to be identified. It was doubly clipped and divided. Additional dissection identified the cystic duct. This was milked and once it had been positively identified, a clip was placed on the cystic duct as close to the gallbladder as could be exposed. Because of the inflammatory nature of the tissue, placing this clip caused the cystic duct to break at this level. No bile was noted to escape from the cystic duct and the lower portion of the cystic duct was able to be viewed and a clip was placed over this occluding it, but still avoiding any injury or compromise to the common bile duct. This area was monitored during the entire case and no indication of bile escaping from this region was noted. Additional blunt dissection with a small amount of cautery was then used to free the lower portion of the gallbladder and then additional cautery dissection was used to free the upper portion of the gallbladder from the liver bed until it was completely free. The gallbladder was placed into an Endo retrieval bag and it was extracted through the largest trocar site. This did require extending the fascial incision to provide adequate room for removal of the gallbladder. No stones or bile were spilled intra-abdominally. Reinspection of the operative region was then carried out with copious irrigation. Hemostasis appeared to be reasonably well controlled with only a small amount of oozing from the lower area of dissection. Surgicel was placed in this region with good control of any bleeding. Again, further inspection showed no sign of any bile leakage from any of the areas of dissection. A Felipe-Mac drain was placed into the subhepatic space and this was brought out through the lateral trocar site and connected to bulb suction. The pneumoperitoneum was evacuated and the trocars were removed under direct visualization. The fascia of the largest trocar site was closed with interrupted [id number] Vicryl sutures. The remaining trocar sites were irrigated with Betadine and saline solution and the skin incisions approximated with interrupted and running 4-0 Vicryl subcuticular stitch. Steri-Strips and benzoin were applied, followed by antibiotic ointment and sterile dressings. The patient was then awakened, extubated, and taken from the operating room in satisfactory condition. ESTIMATED BLOOD LOSS: 100 mL. COMPLICATIONS: None. PROGNOSIS: Good. CHRISTIANO Watkins MD /[id number] [place]
[2018-08-21] MEDS ORDERED: Acetaminophen/HYDROcodone 325-5 MG Tab PO PRN (10:00)
[2018-08-21] MEDS ORDERED: Lisinopril 10 MG Tab PO ONE (12:52)
[2018-08-21] MEDS ORDERED: Saliva Substitute Oral Spray 120 ML Bottle MUCMEM PRN (15:43)
[2018-08-21] MEDS ORDERED: NIFEdipine 10 MG Cap PO ONE (15:44)
--- NOTE | 2018-08-21 15:51 | PCM.PN ---
- General Info Date of Service: 08/21/18 Functional Status: Reports: Tolerating Diet - Review of Systems General: Reports: Appetite (improving) HEENT: Reports: Other (sores in mouth) Pulmonary: Reports: No Symptoms Cardiovascular: Reports: No Symptoms Gastrointestinal: Reports: Abdominal Pain (post op) Genitourinary: Reports: No Symptoms Musculoskeletal: Reports: No Symptoms Skin: Reports: No Symptoms Neurological: Reports: No Symptoms Psychiatric: Reports: No Symptoms - Patient Data Vitals - Most Recent: Last Vital Signs Temp 97.2 F 08/21/18 08:00 Pulse 66 08/21/18 12:00 Resp 20 08/21/18 12:00 BP 149/70 H 08/21/18 13:45 Pulse Ox 94 L 08/21/18 12:00 Weight - Most Recent: 191 lb 3.205 oz I&O - Last 24 Hours: Intake & Output 08/21/18 08/21/18 08/21/18 06:59 14:59 22:59 Intake Total 1246 730 Output Total 865 900 Balance 381 -170 Lab Results Last 24 Hours: Laboratory Results - last 24 hr 08/20/18 08/21/18 08/21/18 Range/Units 16:51 06:55 06:55 WBC 12.0 H (4.0-10.2) K/uL RBC 3.39 L (3.77-5.09) M/uL Hgb 10.9 L (11.7-15.5) g/dL Hct 32.9 L (34.0-46.0) % MCV 97.1 (84.0-98.0) fL MCH 32.2 (28.2-33.3) pg MCHC 33.1 (31.7-36.0) g/dL RDW 12.1 (11.2-14.1) % Plt Count 315 (150-350) K/uL Neut % (Auto) 82.1 H (45.0-80.0) % Lymph % (Auto) 9.7 L (10.0-50.0) % [place] % (Auto) 8.1 (2.0-14.0) % Eos % (Auto) 0.0 (0.0-5.0) % Baso % (Auto) 0.1 (0.0-2.0) % Neut # (Auto) 9.87 H (1.40-7.00) K/uL Lymph # (Auto) 1.17 (0.50-3.50) K/uL [place] # (Auto) 0.98 (0.00-1.00) K/uL Eos # (Auto) 0.00 (0.00-0.50) K/uL Baso # (Auto) 0.01 (0.00-0.20) K/uL Sodium 137 (136-145) mmol/L Potassium 3.6 (3.5-5.1) mmol/L Chloride 101 (98-107) mmol/L Carbon Dioxide 29.9 (21.0-32.0) mmol/L BUN 9 (7-18) mg/dL Creatinine 0.65 (0.51-1.17) mg/dL Est Cr Clr Drug Dosing 65.85 mL/min Estimated GFR (MDRD) > 60 mL/min Glucose 161 H (74-106) mg/dL POC Glucose 235 H (65-110) mg/dl Calcium 8.4 L (8.5-10.1) mg/dL Total Bilirubin 0.3 (0.2-1.0) mg/dL AST 22 (15-37) U/L ALT 21 (12-78) U/L Alkaline Phosphatase 75 (46-116) IU/L C-Reactive Protein (<=0.9) mg/dL Total Protein 6.2 L (6.4-8.2) g/dL Albumin 2.3 L (3.4-5.0) g/dL 08/21/18 08/21/18 08/21/18 Range/Units 06:55 07:34 11:31 WBC (4.0-10.2) K/uL RBC (3.77-5.09) M/uL Hgb (11.7-15.5) g/dL Hct (34.0-46.0) % MCV (84.0-98.0) fL MCH (28.2-33.3) pg MCHC (31.7-36.0) g/dL RDW (11.2-14.1) % Plt Count (150-350) K/uL Neut % (Auto) (45.0-80.0) % Lymph % (Auto) (10.0-50.0) % [place] % (Auto) (2.0-14.0) % Eos % (Auto) (0.0-5.0) % Baso % (Auto) (0.0-2.0) % Neut # (Auto) (1.40-7.00) K/uL Lymph # (Auto) (0.50-3.50) K/uL [place] # (Auto) (0.00-1.00) K/uL Eos # (Auto) (0.00-0.50) K/uL Baso # (Auto) (0.00-0.20) K/uL Sodium (136-145) mmol/L Potassium (3.5-5.1) mmol/L Chloride (98-107) mmol/L Carbon Dioxide (21.0-32.0) mmol/L BUN (7-18) mg/dL Creatinine (0.51-1.17) mg/dL Est Cr Clr Drug Dosing mL/min Estimated GFR (MDRD) mL/min Glucose (74-106) mg/dL POC Glucose 171 H 178 H (65-110) mg/dl Calcium (8.5-10.1) mg/dL Total Bilirubin (0.2-1.0) mg/dL AST (15-37) U/L ALT (12-78) U/L Alkaline Phosphatase (46-116) IU/L C-Reactive Protein 14.3 H (<=0.9) mg/dL Total Protein (6.4-8.2) g/dL Albumin (3.4-5.0) g/dL [place]bin Results Last 24 Hours: Microbiology 08/19/18 13:00 Helicobacter pylori Antigen - Final Stool / Feces Med Orders - Current: Current Medications Acetaminophen (Tylenol) 650 mg PO Q4H PRN PRN Reason: analgesia/fever Last Admin: 08/19/18 07:43 Dose: 650 mg Hydrocodone Bitart/Acetaminophen (Andrews 325-5 Mg) 1 tab PO Q4H PRN PRN Reason: Pain Fentanyl (Sublimaze) 100 mcg IVPUSH Q3H PRN PRN Reason: Pain Last Admin: 08/21/18 02:18 Dose: 100 mcg Ciprofloxacin/Dextrose 400 mg/ (Premix) 200 mls @ 200 mls/hr IV Q12H GRAY Last Admin: 08/21/18 13:45 Dose: 200 mls/hr Metronidazole 500 mg/ Premix 100 mls @ 100 mls/hr IV Q8H [facility] Last Admin: 08/21/18 15:06 Dose: 100 mls/hr Lisinopril (Prinivil) 10 mg PO DAILY@1800 [facility] Last Admin: 08/20/18 17:31 Dose: 10 mg Metoprolol Succinate (Toprol Xl) 25 mg PO DAILY [facility] Last Admin: 08/21/18 08:04 Dose: 25 mg Ondansetron HCl (Zofran) 4 mg IVPUSH Q4H PRN PRN Reason: Nausea/Vomiting Last Admin: 08/18/18 00:12 Dose: 4 mg Pantoprazole Sodium (Protonix Iv) 40 mg IVPUSH BEDTIME [facility] Last Admin: 08/20/18 20:50 Dose: 40 mg Saliva Substitute (Lele-Stir Oral [place]) 0 ml MUCMEM ASDIRECTED PRN PRN Reason: Dryness Sodium Chloride (Saline Flush) 10 ml FLUSH ASDIRECTED PRN PRN Reason: Keep Vein Open Last Admin: 08/21/18 15:06 Dose: 10 ml Temazepam (Restoril) 15 mg PO BEDTIME PRN PRN Reason: Insomnia Last Admin: 08/18/18 00:11 Dose: 15 mg Discontinued Medications Al Hydroxide/Mg Hydroxide (Gi Cocktail) 30 ml PO ONETIME ONE Stop: 08/17/18 03:27 Last Admin: 08/17/18 03:32 Dose: 30 ml Atorvastatin Calcium (Lipitor) 40 mg PO BEDTIME [facility] Bacitracin (Bacitracin Oint 1 Gm) 1 dose TOP .STK-MED ONE Stop: 08/20/18 13:39 Last Admin: 08/20/18 13:38 Dose: 1 dose Bupivacaine HCl/Epinephrine Bitart (Marcaine 0.25%/Epinephrine 1:200,000) 30 ml INJECT .STK-MED ONE Stop: 08/20/18 11:50 Last Admin: 08/20/18 11:49 Dose: 30 ml Ciprofloxacin/Dextrose (Cipro In D5w 400 Mg/200 Ml) 400 mg .ROUTE .STK-MED ONE Stop: 08/20/18 11:26 Dexamethasone (Dexamethasone) 8 mg .ROUTE .STK-MED ONE Stop: 08/20/18 11:26 Diltiazem HCl (Diltiazem) 20 mg IVPUSH ONETIME ONE Stop: 08/17/18 17:19 Last Admin: 08/17/18 18:04 Dose: 20 mg Enalaprilat (Vasotec Iv) 0.625 mg IVPUSH ONETIME ONE Stop: 08/20/18 08:01 Last Admin: 08/20/18 07:21 Dose: 0.625 mg Ephedrine Sulfate (Ephedrine Sulfate) 10 mg .ROUTE .STK-MED ONE Stop: 08/20/18 11:26 Famotidine (Pepcid) 20 mg IVPUSH ONETIME ONE Stop: 08/17/18 03:27 Last Admin: 08/17/18 03:32 Dose: 20 mg Fentanyl (Sublimaze) 100 mcg IVPUSH ONETIME ONE Stop: 08/17/18 13:34 Last Admin: 08/17/18 14:06 Dose: 100 mcg Fentanyl (Sublimaze) Confirm Administered Dose 250 mcg .ROUTE .STK-MED ONE Stop: 08/20/18 08:15 Last Admin: 08/20/18 18:10 Dose: Not Given Fentanyl (Sublimaze) 250 mcg .ROUTE .STK-MED ONE Stop: 08/20/18 11:26 Glycopyrrolate (Robinul) 0.8 mg .ROUTE .STK-MED ONE Stop: 08/20/18 11:26 Sodium Chloride (Normal Saline) 1,000 mls @ 500 mls/hr IV .BOLUS ONE Stop: 08/17/18 05:25 Last Admin: 08/17/18 03:37 Dose: 500 mls/hr Magnesium Sulfate/Dextrose (Magnesium 1 Gm In D5w 100 Ml) 100 mls @ 100 mls/hr IV ONETIME ONE Stop: 08/17/18 05:29 Last Admin: 08/17/18 04:53 Dose: 100 mls/hr Lactated Ringer's (Ringers, Lactated) 1,000 mls @ 50 mls/hr IV ASDIRECTED [facility] Last Admin: 08/19/18 16:52 Dose: 100 mls/hr Lactated Ringer's (Ringers, Lactated) 1,000 mls @ 100 mls/hr IV ASDIRECTED [facility] Last Admin: 08/21/18 03:22 Dose: 100 mls/hr Levothyroxine Sodium (Levothyroxine) 75 mcg PO ACBREAKFAST [facility] Last Admin: 08/17/18 09:20 Dose: 75 mcg Lisinopril (Prinivil) 10 mg PO DAILY@18 [facility] Last Admin: 08/18/18 17:33 Dose: 10 mg Lisinopril (Prinivil) 20 mg PO ONETIME ONE Stop: 08/18/18 12:01 Last Admin: 08/18/18 12:30 Dose: 20 mg Lisinopril (Prinivil) 10 mg PO BID [facility] Last Admin: 08/19/18 18:08 Dose: 10 mg Lisinopril (Prinivil) 10 mg PO ONETIME ONE Stop: 08/21/18 12:53 Last Admin: 08/21/18 13:45 Dose: 10 mg Magnesium Oxide (Magnesium Oxide) 400 mg PO BID [facility] Last Admin: 08/17/18 09:19 Dose: 400 mg Metformin HCl (Glucophage) 500 mg PO BIDMEALS [facility] Last Admin: 08/17/18 09:20 Dose: 500 mg Metoprolol Succinate (Toprol Xl) 25 mg PO DAILY [facility] Last Admin: 08/19/18 07:35 Dose: 25 mg Metoprolol Tartrate (Lopressor) 5 mg IVPUSH ONETIME ONE Stop: 08/20/18 09:01 Last Admin: 08/20/18 08:33 Dose: 5 mg Metoprolol Tartrate (Lopressor) 10 mg .ROUTE .STK-MED ONE Stop: 08/20/18 11:26 Metronidazole (Flagyl 500 Mg In Ns 100 Ml) 500 mg .ROUTE .STK-MED ONE Stop: 08/20/18 11:26 Midazolam HCl (Versed 1 Mg/Ml) Confirm Administered Dose 2 mg .ROUTE .STK-MED ONE Stop: 08/20/18 08:15 Last Admin: 08/20/18 18:11 Dose: Not Given Midazolam HCl (Versed 1 Mg/Ml) 2 mg .ROUTE .STK-MED ONE Stop: 08/20/18 11:26 Morphine Sulfate (Morphine) 4 mg IVPUSH ONETIME ONE Stop: 08/17/18 04:22 Last Admin: 08/17/18 04:35 Dose: 4 mg Neostigmine Methylsulfate (Neostigmine Methylsulfate) 4 mg .ROUTE .STK-MED ONE Stop: 08/20/18 11:26 Nifedipine (Procardia) 10 mg PO ONETIME STA Stop: 08/17/18 19:46 Last Admin: 08/17/18 19:55 Dose: 10 mg Ondansetron HCl (Zofran) 4 mg IVPUSH ONETIME ONE Stop: 08/17/18 04:22 Last Admin: 08/17/18 04:35 Dose: 4 mg Ondansetron HCl (Zofran) 8 mg IVPUSH ONETIME ONE Stop: 08/17/18 13:34 Last Admin: 08/17/18 14:06 Dose: 8 mg Ondansetron HCl (Zofran) 4 mg .ROUTE .STK-MED ONE Stop: 08/20/18 11:26 Pantoprazole Sodium (Protonix Iv) 40 mg IVPUSH ONETIME ONE Stop: 08/17/18 03:27 Last Admin: 08/17/18 03:32 Dose: 40 mg Promethazine HCl (Phenergan) 25 mg IM ONETIME ONE Stop: 08/17/18 17:20 Last Admin: 08/17/18 18:11 Dose: 25 mg Propofol (Diprivan 20 Ml) Confirm Administered Dose 200 mg .ROUTE .STK-MED ONE Stop: 08/20/18 08:15 Last Admin: 08/20/18 18:10 Dose: Not Given Propofol (Diprivan 20 Ml) Confirm Administered Dose 200 mg .ROUTE .STK-MED ONE Stop: 08/20/18 11:13 Last Admin: 08/20/18 18:12 Dose: Not Given Propofol (Diprivan 20 Ml) 200 mg .ROUTE .STK-MED ONE Stop: 08/20/18 11:26 Succinylcholine Chloride (Quelicin) 100 mg .ROUTE .STK-MED ONE Stop: 08/20/18 11:26 - Exam General: Alert, Cooperative HEENT: Other (white lesions lower lip and left upper lip, mouth dry) Neck: Trachea Midline, No JVD Lungs: Clear to Auscultation, Normal Respiratory Effort Cardiovascular: Regular Rate, Regular Rhythm GI/Abdominal Exam: Normal Bowel Sounds, Soft, No Distention, Tender (mild RUQ), Other (J/P drain pink serosanguinous fluid) (Female) Exam: Deferred Back Exam: Normal Inspection Extremities: Normal Inspection, Non-Tender, No Pedal Edema Skin: Warm, Dry, Intact Wound/Incisions: Healing Well Neurological: No New Focal Deficit Psy/Mental Status: Alert, Normal Affect, Normal Mood - Problem List & Annotations (1) Acute cholecystitis due to biliary calculus SNOMED Code(s): 72983955945942 Code(s): K80.00 - CALCULUS OF GALLBLADDER W ACUTE CHOLECYST W/O OBSTRUCTION Status: Acute Priority: High Current Visit: Yes (2) Diabetes SNOMED Code(s): 61905198 Code(s): E11.9 - TYPE 2 DIABETES MELLITUS WITHOUT COMPLICATIONS Status: Chronic Priority: Low Current Visit: No Qualifiers: Diabetes mellitus type: type 2 Diabetes mellitus complication status: with hyperglycemia Annotation/Comment:: (3) GERD (gastroesophageal reflux disease) SNOMED Code(s): 183763924 Code(s): K21.9 - GASTRO-ESOPHAGEAL REFLUX DISEASE WITHOUT ESOPHAGITIS Status: Chronic Priority: High Current Visit: No Qualifiers: Esophagitis presence: esophagitis presence not specified Qualified Code(s) : K21.9 - Gastro-esophageal reflux disease without esophagitis Annotation/Comment:: History of GERD/heartburn symptoms. Pain tonight improved with GI cocktail. Protonix and Pepcid given IV. H.Pylorie screen ordered. (4) Hypertension SNOMED Code(s): 79229675 Code(s): I10 - ESSENTIAL (PRIMARY) HYPERTENSION Status: Chronic Priority : Medium Current Visit: No Qualifiers: Hypertension type: essential hypertension Qualified Code(s): I10 - Essential (primary) hypertension (5) Hypomagnesemia SNOMED Code(s): 113429945 Code(s): E83.42 - HYPOMAGNESEMIA Status: Chronic Priority: Medium Current Visit: No Annotation/Comment:: Will give supplemental Mag. Patient's home dose of Magnesium will need to be increased at time of discharge. (6) Hx of CABG SNOMED Code(s): 038631058, 749117684 Code(s): Z95.1 - PRESENCE OF AORTOCORONARY BYPASS GRAFT Status: Acute Priority: Medium Current Visit: Yes (7) Atherosclerotic coronary vascular disease SNOMED Code(s): 579152286 Code(s): I25.10 - ATHSCL HEART DISEASE OF [place] CORONARY ARTERY W/O ANG PCTRS Status: Acute Current Visit: Yes Qualifiers: Coronary Disease-Associated Artery/Lesion type: bypass graft [place] vs. transplanted heart: [place] heart Associated angina: without angina Qualified Code(s): I25.810 - Atherosclerosis of coronary artery bypass graft(s) without angina pectoris - Problem List Review Problem List Initiated/Reviewed/Updated: Yes - My Orders Last 24 Hours: My Active Orders 08/20/18 18:00 Lisinopril [Prinivil] 10 mg PO DAILY@1800 08/21/18 08:00 Metoprolol Succinate [Toprol XL] 25 mg PO DAILY 08/21/18 10:00 Acetaminophen/HYDROcodone [Andrews 325-5 MG] 1 tab PO Q4H PRN 08/21/18 15:43 Carboxymethylcellulose/Lytes [Lele-Stir Oral [place]] See Dose Instructions MUCMEM ASDIRECTED PRN 08/21/18 15:44 NIFEdipine [Procardia] 10 mg PO ONETIME ONE 08/21/18 Dinner Low Fat Diet [DIET] 08/22/18 05:11 CBC WITH AUTO DIFF [HEME] Routine CMP [COMPREHENSIVE METABOLIC PN,CMP] [CHEM] Routine CRP [C-REACTIVE PROTEIN] [CHEM] Routine - Assessment Assessment:: acute cholecystitis with cholelithiasis - Plan Plan:: Cholecystectomy 08/20/18 Aleksandr Ya MD Post op. Talked with Randi Gambino, and her daughter. J-P drain. Recheck in AM. 08/21/18 Aleksandr Ya MD Better today. Some sores in her mouth. Labs improving but not back to normal. Continue inpatient status and IV antibiotics.
[2018-08-21] MEDS: Lisinopril 10 MG Tab PO SCH (17:23)
[2018-08-21] MEDS: Pantoprazole 40 MG Vial IVPUSH SCH ×2 (19:19→19:33)
[2018-08-21] MEDS: metroNIDAZOLE 500 MG Tab PO SCH (23:09)
[2018-08-22] MEDS ORDERED: Ciprofloxacin 500 MG Tab PO SCH (02:00)
[2018-08-22 07:46] LABS: CHLORIDE,CL 101 mmol/L (98-107); SODIUM,NA 137 mmol/L (136-145)
[2018-08-22] MEDS: metroNIDAZOLE 500 MG Tab PO SCH (08:17)
[2018-08-22] MEDS: Metoprolol Succinate 25 MG Tab.ER PO SCH (08:17)
[2018-08-22] MEDS ORDERED: Potassium Chloride 10 MEQ Tab.ER PO ONE (08:47)
[2018-08-22] MEDS ORDERED: Potassium Chloride 20 MEQ Tab.ER PO ONE ×2 (09:00→10:00)
--- NOTE | 2018-08-22 17:39 | PCM.DCSUM1 ---
Discharge Summary - Hospital Course Diagnosis: Stroke: No - Discharge Data Discharge Date: 08/22/18 Discharge Disposition: Home, Self-Care 01 Condition: Good - Discharge Diagnosis/Problem(s) (1) Acute cholecystitis due to biliary calculus SNOMED Code(s): 63384405516144 ICD Code: K80.00 - CALCULUS OF GALLBLADDER W ACUTE CHOLECYST W/O OBSTRUCTION Status: Acute Priority: High (2) Diabetes SNOMED Code(s): 79627119 ICD Code: E11.9 - TYPE 2 DIABETES MELLITUS WITHOUT COMPLICATIONS Status: Chronic Priority: Low Problem Details: Qualifiers: Diabetes mellitus type: type 2 Diabetes mellitus complication status: with hyperglycemia (3) GERD (gastroesophageal reflux disease) SNOMED Code(s): 241206287 ICD Code: K21.9 - GASTRO-ESOPHAGEAL REFLUX DISEASE WITHOUT ESOPHAGITIS Status: Chronic Priority: High Problem Details: History of GERD/heartburn symptoms. Pain tonight improved with GI cocktail. Protonix and Pepcid given IV. H.Pylorie screen ordered. Qualifiers: Esophagitis presence: esophagitis presence not specified Qualified Code(s) : K21.9 - Gastro-esophageal reflux disease without esophagitis (4) Hypertension SNOMED Code(s): 76184357 ICD Code: I10 - ESSENTIAL (PRIMARY) HYPERTENSION Status: Chronic Priority : Medium Qualifiers: Hypertension type: essential hypertension Qualified Code(s): I10 - Essential (primary) hypertension (5) Hypomagnesemia SNOMED Code(s): 884762585 ICD Code: E83.42 - HYPOMAGNESEMIA Status: Chronic Priority: Medium Problem Details: Will give supplemental Mag. Patient's home dose of Magnesium will need to be increased at time of discharge. (6) Hx of CABG SNOMED Code(s): 646898332, 113615376 ICD Code: Z95.1 - PRESENCE OF AORTOCORONARY BYPASS GRAFT Status: Acute Priority: Medium (7) Atherosclerotic coronary vascular disease SNOMED Code(s): 924031033 ICD Code: I25.10 - ATHSCL HEART DISEASE OF [place] CORONARY ARTERY W/O ANG PCTRS Status: Acute Qualifiers: Coronary Disease-Associated Artery/Lesion type: bypass graft [place] vs. transplanted heart: [place] heart Associated angina: without angina Qualified Code(s): I25.810 - Atherosclerosis of coronary artery bypass graft(s) without angina pectoris - Patient Summary/Data Operative Procedure(s) Performed: Laparoscopic cholecystectomy Consults: Consultations 08/17/18 13:39 Consult to Physician [CONS] Routine - Patient Instructions Diet: Heart Healthy Diet Activity: No Lifting Over 10 Pounds Driving: Do Not Drive Showering/Bathing: May Shower Wound/Incision Care: Keep Operative Site/Wound Site Clean and Dry, Change Dressing Daily Notify Provider of: Fever, Increased Pain, Swelling and Redness, Drainage, Nausea and/or Vomiting Other/Special Instructions: You have an appointment at [facility] on Friday08/25/18 at 10:00 am with Petrona Renee. - Discharge Plan *PRESCRIPTION DRUG MONITORING PROGRAM REVIEWED*: Not Applicable *COPY OF PRESCRIPTION DRUG MONITORING REPORT IN PATIENT RAMU: Not Applicable Prescriptions/Med Rec: Ciprofloxacin HCl [Cipro] 500 mg PO BID #10 tablet Hydrocodone/Acetaminophen [Hydrocodon-Acetaminophen 5-325] 1 each PO Q4H PRN # 20 tablet PRN Reason: Pain metroNIDAZOLE [Metronidazole] 500 mg PO TID #15 tablet Home Medications: Home Meds Aspirin [Aspirin EC] 325 mg PO DAILY 05/08/18 [History] Levothyroxine Sodium [Synthroid] 1 tab PO DAILY 05/08/18 [History] Lisinopril 10 mg PO DAILY@18 05/08/18 [History] Metoprolol Succinate [Toprol XL] 25 mg PO DAILY 05/08/18 [History] atorvaSTATin [Lipitor] 40 mg PO BEDTIME 05/08/18 [History] metFORMIN HCl [Metformin HCl] 500 mg PO BID 05/08/18 [History] Acetaminophen [Tylenol Arthritis] 2 tab PO Q6H PRN 08/17/18 [History] Cholecalciferol (Vitamin D3) [Vitamin D3] 1,000 units PO BID 08/17/18 [History] Folic Acid/Multivit-Min/Lutein [Multi-Vitamin Gummies] 1 each PO DAILY 08/17/18 [History] Magnesium Oxide [Magnesium] 400 mg PO BID 08/17/18 [History] Temazepam 1 tab PO BEDTIME PRN 08/17/18 [History] Vitamin C/Biotin [Hair, Skin and Nails Gummies] 1 each PO DAILY 08/17/18 [ History] Ciprofloxacin HCl [Cipro] 500 mg PO BID #10 tablet 08/21/18 [Rx] Hydrocodone/Acetaminophen [Hydrocodon-Acetaminophen 5-325] 1 each PO Q4H PRN # 20 tablet 08/21/18 [Rx] metroNIDAZOLE [Metronidazole] 500 mg PO TID #15 tablet 08/21/18 [Rx] Oxygen Therapy Mode: Room Air Patient Handouts: Abdominal Pain, Adult, [id number], Lisinopril tablets, Abdominal or Pelvic Ultrasound Forms: ED Department Discharge Referrals: Petrona Renee 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 [Primary Care Provider] - - Discharge Summary/Plan Comment DC Time >30 min.: No - Patient Data Vitals - Most Recent: Last Vital Signs Temp 97 F 08/22/18 12:00 Pulse 75 08/22/18 12:00 Resp 20 08/22/18 12:00 BP 150/83 H 08/22/18 12:00 Pulse Ox 98 08/22/18 12:00 Weight - Most Recent: 191 lb 3.205 oz I&O - Last 24 hours: Intake & Output 08/22/18 08/22/18 08/22/18 06:59 14:59 22:59 Intake Total 320 360 Output Total 20 Balance 320 340 Lab Results - Last 24 hrs: Laboratory Results - last 24 hr 08/22/18 08/22/18 08/22/18 Range/Units 07:05 07:05 07:40 WBC 9.6 (4.0-10.2) K/uL RBC 3.53 L (3.77-5.09) M/uL Hgb 11.3 L (11.7-15.5) g/dL Hct 34.3 (34.0-46.0) % MCV 97.2 (84.0-98.0) fL MCH 32.0 (28.2-33.3) pg MCHC 32.9 (31.7-36.0) g/dL RDW 12.5 (11.2-14.1) % Plt Count 309 (150-350) K/uL Neut % (Auto) 59.8 (45.0-80.0) % Lymph % (Auto) 20.7 (10.0-50.0) % [place] % (Auto) 12.2 (2.0-14.0) % Eos % (Auto) 7.0 H (0.0-5.0) % Baso % (Auto) 0.3 (0.0-2.0) % Neut # (Auto) 5.71 (1.40-7.00) K/uL Lymph # (Auto) 1.98 (0.50-3.50) K/uL [place] # (Auto) 1.17 H (0.00-1.00) K/uL Eos # (Auto) 0.67 H (0.00-0.50) K/uL Baso # (Auto) 0.03 (0.00-0.20) K/uL Sodium 137 (136-145) mmol/L Potassium 2.9 L* (3.5-5.1) mmol/L Chloride 101 (98-107) mmol/L Carbon Dioxide 30.0 (21.0-32.0) mmol/L BUN 13 (7-18) mg/dL Creatinine 0.72 (0.51-1.17) mg/dL Est Cr Clr Drug Dosing 59.45 mL/min Estimated GFR (MDRD) > 60 mL/min Glucose 154 H (74-106) mg/dL POC Glucose 148 H (65-110) mg/dl Calcium 8.5 (8.5-10.1) mg/dL Total Bilirubin 0.3 (0.2-1.0) mg/dL AST 26 (15-37) U/L ALT 24 (12-78) U/L Alkaline Phosphatase 74 (46-116) IU/L C-Reactive Protein 7.3 H (<=0.9) mg/dL Total Protein 6.5 (6.4-8.2) g/dL Albumin 2.6 L (3.4-5.0) g/dL 08/22/18 08/22/18 Range/Units 11:11 11:50 WBC (4.0-10.2) K/uL RBC (3.77-5.09) M/uL Hgb (11.7-15.5) g/dL Hct (34.0-46.0) % MCV (84.0-98.0) fL MCH (28.2-33.3) pg MCHC (31.7-36.0) g/dL RDW (11.2-14.1) % Plt Count (150-350) K/uL Neut % (Auto) (45.0-80.0) % Lymph % (Auto) (10.0-50.0) % [place] % (Auto) (2.0-14.0) % Eos % (Auto) (0.0-5.0) % Baso % (Auto) (0.0-2.0) % Neut # (Auto) (1.40-7.00) K/uL Lymph # (Auto) (0.50-3.50) K/uL [place] # (Auto) (0.00-1.00) K/uL Eos # (Auto) (0.00-0.50) K/uL Baso # (Auto) (0.00-0.20) K/uL Sodium (136-145) mmol/L Potassium 3.4 L (3.5-5.1) mmol/L Chloride (98-107) mmol/L Carbon Dioxide (21.0-32.0) mmol/L BUN (7-18) mg/dL Creatinine (0.51-1.17) mg/dL Est Cr Clr Drug Dosing mL/min Estimated GFR (MDRD) mL/min Glucose (74-106) mg/dL POC Glucose 177 H (65-110) mg/dl Calcium (8.5-10.1) mg/dL Total Bilirubin (0.2-1.0) mg/dL AST (15-37) U/L ALT (12-78) U/L Alkaline Phosphatase (46-116) IU/L C-Reactive Protein (<=0.9) mg/dL Total Protein (6.4-8.2) g/dL Albumin (3.4-5.0) g/dL Med Orders - Current: Current Medications Discontinued Medications Acetaminophen (Tylenol) 650 mg PO Q4H PRN PRN Reason: analgesia/fever Last Admin: 08/19/18 07:43 Dose: 650 mg Hydrocodone Bitart/Acetaminophen ([place] 325-5 Mg) 1 tab PO Q4H PRN PRN Reason: Pain Al Hydroxide/Mg Hydroxide (Gi Cocktail) 30 ml PO ONETIME ONE Stop: 08/17/18 03:27 Last Admin: 08/17/18 03:32 Dose: 30 ml Atorvastatin Calcium (Lipitor) 40 mg PO BEDTIME GRAY Bacitracin (Bacitracin Oint 1 Gm) 1 dose TOP .STK-MED ONE Stop: 08/20/18 13:39 Last Admin: 08/20/18 13:38 Dose: 1 dose Bupivacaine HCl/Epinephrine Bitart (Marcaine 0.25%/Epinephrine 1:200,000) 30 ml INJECT .STK-MED ONE Stop: 08/20/18 11:50 Last Admin: 08/20/18 11:49 Dose: 30 ml Ciprofloxacin (Ciprofloxacin Hcl) 500 mg PO Q12H GRAY Last Admin: 08/22/18 02:13 Dose: 500 mg Ciprofloxacin/Dextrose (Cipro In D5w 400 Mg/200 Ml) 400 mg .ROUTE .STK-MED ONE Stop: 08/20/18 11:26 Dexamethasone (Dexamethasone) 8 mg .ROUTE .STK-MED ONE Stop: 08/20/18 11:26 Diltiazem HCl (Diltiazem) 20 mg IVPUSH ONETIME ONE Stop: 08/17/18 17:19 Last Admin: 08/17/18 18:04 Dose: 20 mg Enalaprilat (Vasotec Iv) 0.625 mg IVPUSH ONETIME ONE Stop: 08/20/18 08:01 Last Admin: 08/20/18 07:21 Dose: 0.625 mg Ephedrine Sulfate (Ephedrine Sulfate) 10 mg .ROUTE .STK-MED ONE Stop: 08/20/18 11:26 Famotidine (Pepcid) 20 mg IVPUSH ONETIME ONE Stop: 08/17/18 03:27 Last Admin: 08/17/18 03:32 Dose: 20 mg Fentanyl (Sublimaze) 100 mcg IVPUSH ONETIME ONE Stop: 08/17/18 13:34 Last Admin: 08/17/18 14:06 Dose: 100 mcg Fentanyl (Sublimaze) 100 mcg IVPUSH Q3H PRN PRN Reason: Pain Last Admin: 08/21/18 02:18 Dose: 100 mcg Fentanyl (Sublimaze) Confirm Administered Dose 250 mcg .ROUTE .STK-MED ONE Stop: 08/20/18 08:15 Last Admin: 08/20/18 18:10 Dose: Not Given Fentanyl (Sublimaze) 250 mcg .ROUTE .STK-MED ONE Stop: 08/20/18 11:26 Glycopyrrolate (Robinul) 0.8 mg .ROUTE .STK-MED ONE Stop: 08/20/18 11:26 Sodium Chloride (Normal Saline) 1,000 mls @ 500 mls/hr IV .BOLUS ONE Stop: 08/17/18 05:25 Last Admin: 08/17/18 03:37 Dose: 500 mls/hr Magnesium Sulfate/Dextrose (Magnesium 1 Gm In D5w 100 Ml) 100 mls @ 100 mls/hr IV ONETIME ONE Stop: 08/17/18 05:29 Last Admin: 08/17/18 04:53 Dose: 100 mls/hr Ciprofloxacin/Dextrose 400 mg/ (Premix) 200 mls @ 200 mls/hr IV Q12H [facility] Last Admin: 08/21/18 13:45 Dose: 200 mls/hr Lactated Ringer's (Ringers, Lactated) 1,000 mls @ 50 mls/hr IV ASDIRECTED [facility] Last Admin: 08/19/18 16:52 Dose: 100 mls/hr Metronidazole 500 mg/ Premix 100 mls @ 100 mls/hr IV Q8H [facility] Last Admin: 08/21/18 15:06 Dose: 100 mls/hr Lactated Ringer's (Ringers, Lactated) 1,000 mls @ 100 mls/hr IV ASDIRECTED [facility] Last Admin: 08/21/18 03:22 Dose: 100 mls/hr Levothyroxine Sodium (Levothyroxine) 75 mcg PO ACBREAKFAST [facility] Last Admin: 08/17/18 09:20 Dose: 75 mcg Lisinopril (Prinivil) 10 mg PO DAILY@18 [facility] Last Admin: 08/18/18 17:33 Dose: 10 mg Lisinopril (Prinivil) 20 mg PO ONETIME ONE Stop: 08/18/18 12:01 Last Admin: 08/18/18 12:30 Dose: 20 mg Lisinopril (Prinivil) 10 mg PO BID [facility] Last Admin: 08/19/18 18:08 Dose: 10 mg Lisinopril (Prinivil) 10 mg PO DAILY@1800 [facility] Last Admin: 08/21/18 17:23 Dose: 10 mg Lisinopril (Prinivil) 10 mg PO ONETIME ONE Stop: 08/21/18 12:53 Last Admin: 08/21/18 13:45 Dose: 10 mg Magnesium Oxide (Magnesium Oxide) 400 mg PO BID [facility] Last Admin: 08/17/18 09:19 Dose: 400 mg Metformin HCl (Glucophage) 500 mg PO BIDMEALS [facility] Last Admin: 08/17/18 09:20 Dose: 500 mg Metoprolol Succinate (Toprol Xl) 25 mg PO DAILY [facility] Last Admin: 08/19/18 07:35 Dose: 25 mg Metoprolol Succinate (Toprol Xl) 25 mg PO DAILY [facility] Last Admin: 08/22/18 08:17 Dose: 25 mg Metoprolol Tartrate (Lopressor) 5 mg IVPUSH ONETIME ONE Stop: 08/20/18 09:01 Last Admin: 08/20/18 08:33 Dose: 5 mg Metoprolol Tartrate (Lopressor) 10 mg .ROUTE .STK-MED ONE Stop: 08/20/18 11:26 Metronidazole (Flagyl 500 Mg In Ns 100 Ml) 500 mg .ROUTE .STK-MED ONE Stop: 08/20/18 11:26 Metronidazole (Flagyl) 500 mg PO Q8HR [facility] Last Admin: 08/22/18 08:17 Dose: 500 mg Midazolam HCl (Versed 1 Mg/Ml) Confirm Administered Dose 2 mg .ROUTE .STK-MED ONE Stop: 08/20/18 08:15 Last Admin: 08/20/18 18:11 Dose: Not Given Midazolam HCl (Versed 1 Mg/Ml) 2 mg .ROUTE .STK-MED ONE Stop: 08/20/18 11:26 Morphine Sulfate (Morphine) 4 mg IVPUSH ONETIME ONE Stop: 08/17/18 04:22 Last Admin: 08/17/18 04:35 Dose: 4 mg Neostigmine Methylsulfate (Neostigmine Methylsulfate) 4 mg .ROUTE .STK-MED ONE Stop: 08/20/18 11:26 Nifedipine (Procardia) 10 mg PO ONETIME STA Stop: 08/17/18 19:46 Last Admin: 08/17/18 19:55 Dose: 10 mg Nifedipine (Procardia) 10 mg PO ONETIME ONE Stop: 08/21/18 15:45 Last Admin: 08/21/18 16:00 Dose: 10 mg Ondansetron HCl (Zofran) 4 mg IVPUSH ONETIME ONE Stop: 08/17/18 04:22 Last Admin: 08/17/18 04:35 Dose: 4 mg Ondansetron HCl (Zofran) 8 mg IVPUSH ONETIME ONE Stop: 08/17/18 13:34 Last Admin: 08/17/18 14:06 Dose: 8 mg Ondansetron HCl (Zofran) 4 mg IVPUSH Q4H PRN PRN Reason: Nausea/Vomiting Last Admin: 08/18/18 00:12 Dose: 4 mg Ondansetron HCl (Zofran) 4 mg .ROUTE .STK-MED ONE Stop: 08/20/18 11:26 Pantoprazole Sodium (Protonix Iv) 40 mg IVPUSH ONETIME ONE Stop: 08/17/18 03:27 Last Admin: 08/17/18 03:32 Dose: 40 mg Pantoprazole Sodium (Protonix Iv) 40 mg IVPUSH BEDTIME GRAY Last Admin: 08/21/18 19:33 Dose: Not Given Potassium Chloride (Klor-Con 10) 20 meq PO ONETIME ONE Stop: 08/22/18 08:48 Last Admin: 08/22/18 09:05 Dose: Not Given Potassium Chloride (Klor-Con M20) 20 meq PO ONETIME ONE Stop: 08/22/18 10:01 Last Admin: 08/22/18 10:08 Dose: 20 meq Potassium Chloride (Klor-Con M20) 20 meq PO ONETIME ONE Stop: 08/22/18 09:01 Last Admin: 08/22/18 09:05 Dose: 20 meq Promethazine HCl (Phenergan) 25 mg IM ONETIME ONE Stop: 08/17/18 17:20 Last Admin: 08/17/18 18:11 Dose: 25 mg Propofol (Diprivan 20 Ml) Confirm Administered Dose 200 mg .ROUTE .STK-MED ONE Stop: 08/20/18 08:15 Last Admin: 08/20/18 18:10 Dose: Not Given Propofol (Diprivan 20 Ml) Confirm Administered Dose 200 mg .ROUTE .STK-MED ONE Stop: 08/20/18 11:13 Last Admin: 08/20/18 18:12 Dose: Not Given Propofol (Diprivan 20 Ml) 200 mg .ROUTE .STK-MED ONE Stop: 08/20/18 11:26 Saliva Substitute (Lele-Stir Oral [place]) 0 ml MUCMEM ASDIRECTED PRN PRN Reason: Dryness Sodium Chloride (Saline Flush) 10 ml FLUSH ASDIRECTED PRN PRN Reason: Keep Vein Open Last Admin: 08/21/18 15:06 Dose: 10 ml Succinylcholine Chloride (Quelicin) 100 mg .ROUTE .STK-MED ONE Stop: 08/20/18 11:26 Temazepam (Restoril) 15 mg PO BEDTIME PRN PRN Reason: Insomnia Last Admin: 08/18/18 00:11 Dose: 15 mg
== END 2018-08-22 14:45 | disposition home or self-care (01) | DRG 418 ==
LOC: LL.ED 02:40 → UNDOADMOB 04:11 → LL.MS 04:11 → OBSVTOIN 13:27
PROVIDERS: ADMIT Emergency Medicine; ATTEND Family Medicine
PROC: 0FT44ZZ Resection of Gallbladder, Percutaneous Endoscopic Approach (ICD-10-PCS; principal; 2018-08-20)
DX: K80.00 Calculus of gallbladder with acute cholecystitis without obstruction (principal); I25.810 Atherosclerosis of coronary artery bypass graft(s) without angina pectoris; K21.9 Gastro-esophageal reflux disease without esophagitis; I10 Essential (primary) hypertension; E11.65 Type 2 diabetes mellitus with hyperglycemia; E83.42 Hypomagnesemia; E78.00 Pure hypercholesterolemia, unspecified; I48.91 Unspecified atrial fibrillation; G89.29 Other chronic pain; M54.9 Dorsalgia, unspecified; E03.9 Hypothyroidism, unspecified; E66.9 Obesity, unspecified; Z95.1 Presence of aortocoronary bypass graft; Z79.82 Long term (current) use of aspirin; Z79.84 Long term (current) use of oral hypoglycemic drugs; Z79.891 Long term (current) use of opiate analgesic; Z79.899 Other long term (current) drug therapy; Z88.0 Allergy status to penicillin; Z90.710 Acquired absence of both cervix and uterus
CPT/HCPCS: 00790; 36415; 71046; 74019; 76700; 80053; 81001; 82150; 82272; 82550; 82553; 82962; 83036; 83605; 83690; 83735; 83880; 84132; 84443; 84484; 85025; 85379; 85610; 85730; 86140; 87338; 93005; 96374; 96375; 99285; A9270-GY; C9113; J0330; J0744; J1100; J2250; J2270; J2405; J2550; J2704; J2710; J3010; J3475; J3490; J7030; J7120